=== PATIENT | male | born 1995 | race Caucasian/White ===

== ENCOUNTER 2018-01-26 17:16 | Emergency (ER) | payer BC, SELFPAY ==
[2018-01-26 17:29] VITALS: BP 134/83; PULSE 80; RESP 14; TEMP 37; O2SAT 100
--- NOTE | 2018-01-26 18:04 | DI.REPORT_ITS ---
SYMPTOM/DIAGNOSIS: FALL/TRAUMA RIGHT ELBOW: No fracture or joint effusion is seen. IMPRESSION: Negative right elbow.
--- NOTE | 2018-01-26 18:25 | ED.GENADUL ---
Disposition Clinical Impression: Elbow abrasion, Abrasion, multiple sites Disposition: HOME Condition: Stable Instructions: Abrasion (ED) Additional Instructions: Keep wounds clean and dry and return immediately if you see any signs of infection, purulent drainage, streaking redness or fever chills. Otherwise take your antibiotics until fully gone. Prescriptions: Cephalexin [Keflex] 500 mg PO Q6H #16 cap Referrals: Lloyd Riggs MD [Primary Care Provider] - (as needed for reassessment ) Medical Decision Making - Radiology Data Radiology results: report reviewed, image reviewed - Medical Decision Making Patient reports a fall yesterday evening while intoxicated causing multiple abrasions to the right side of his body. He states a significant abrasion to the right posterior elbow that had quite a bit of contamination in it. He states due to the pain and discomfort of attempting to clean it he is presenting to the emergency department now. Patient states other mild abrasions to the lower legs but otherwise denies any other injury or trauma and just states mild aches and pains but no vertebral tenderness, no significant neck tenderness, no shortness of breath abdominal pain or shortness breath. On physical exam patient has significant tenderness to palpation at posterior elbow and approximately 1-1/2 cm deep abrasion and otherwise multiple superficial abrasions down the forearm and the ulnar aspect of the wrist. Range of motion is appropriate except for some decreased flexion and extension of the elbow otherwise neurovascularly intact with no other joint involvement noted of the shoulder or distal. Plan to perform radiological imaging of the elbow to rule out acute fracture per After review of radiological imaging showing no signs of acute fracture patient consented to local anesthetic and 2% lidocaine was injected locally and 5 mL's were instilled. Wound was then thoroughly scrubbed and cleansed and visualized to base in bloodless field with no evidence of foreign body or contamination continue to be noted after thorough irrigation with fluids and scrubbing with Hibiclens. Other superficial wounds to the upper extremity were also cleansed at this time. Patient tolerated procedure well. Patient unaware of his last tetanus shot but thought it was when he was as a kid so his tetanus was updated and patient placed on Keflex for 4 days due to contaminated abrasion that is into the subcutaneous tissue. Otherwise no other abnormality was noted and also notation was once elbow was anesthetized patient had greater increase of range of motion of the elbow lowering my suspicion of fracture. I feel the patient's main discomfort is due to the multiple abrasions and soft tissue injury. Patient was encouraged to watch for signs of infection return immediately if these occur otherwise to follow-up with his primary care provider as needed. After discussion of diagnosis and plan of care with patient patient agreed and stated no further needs, questions, or concerns at this time. History of Present Illness - General Chief complaint: Laceration Stated complaint: RT ELB INJ Time Seen by Provider: 01/26/18 18:03 Source: patient, RN notes reviewed Mode of arrival: ambulatory Limitations: no limitations - History of Present Illness Initial comments: Patient reports last night he had been drinking and fell down a couple times with 1 of the times he landed on his right elbow. The ambulance was called at that time but he refused transport. Throughout the course of the day he has had worsening pain and discomfort and some numbness and tingling to his hand. Patient states he is unaware of his tetanus and was unable to clean the wound due to significant pain and discomfort. Onset/Timin -: hour(s) Location: right, upper extremity Radiation: distal Severity scale (1-10): 4 Quality: sharp Consistency: constant Improves with: none Worsens with: movement Associated Symptoms: denies other symptoms Treatments Prior to Arrival: none - Related Data Cephalexin [Keflex] 500 mg PO Q6H #16 cap 01/26/18 Allergies Allergy/AdvReac Type Severity Reaction Status Date / Time No Known Allergies Allergy Unverified 01/26/18 17:37 Review of Systems Constitutional: no symptoms reported. denies: chills, fever Eyes: denies: vision change Respiratory: denies: shortness of breath Cardiovascular: denies: chest pain, syncope Musculoskeletal: as per HPI, arthralgia. denies: back pain (Denies neck pain) Skin: as per HPI, other (Multiple skin abrasions to right elbow with one deep scrape) Neurological: paresthesias (2 distal hand). denies: headache, weakness, numbness Past Medical History - Past Medical History Medical history: no medical history Surgical history: other (fx right forearm) - Social History Smoking status: current everyday smoker Alcohol use: occasionally, heavy, recent Drug use: none Living Situation: lives with family General Exam - General Limitations: no limitations General appearance: alert, in no apparent distress - Head Head exam: Present: atraumatic, normocephalic - Neck Neck exam: Present: full ROM. Absent: tenderness - Respiratory Respiratory exam: Absent: respiratory distress - Cardiovascular Cardiovascular Exam: Present: regular rate, normal rhythm - Expanded Upper Extremity Exam Right Elbow exam: Present: tenderness (To palpation of elbow), swelling (Posterior elbow), abrasion (Multiple with 1 deep abrasion noted), tenderness over radial head. Absent: full ROM (Decreased flexion and extension), crepidus, erythema, effusion, pain w/ pronation/supination Forearm Wrist exam: Present: full ROM. Absent: tenderness, tenderness over anatomical snuff box, pain with axial thumb loading Hand Wrist exam: Present: normal inspection Neuro motor exam: Present: wrist extension intact, thumb opposition intact, thumb IP flexion intact, thumb adduction intact, fingers 2-5 abduction intact Neurosensory exam: Present: 2-point discrimination, radial nerve intact, median nerve intact Vascular: Present: radial pulse (2+) - Neurological Exam Neurological exam: Present: alert, oriented X3. Absent: altered - Skin Skin exam: Present: warm, dry Course Vital Signs - 24 hr 01/26/ 17:29 Temperature 37.0 C Pulse 80 Respiratory 14 Rate Blood Pressure 134/83 Pulse Oximetry 100
[2018-01-26] MEDS: Lidocaine 2% Multi-Dose 50 ML VIAL (18:52)
--- NOTE | 2018-01-26 19:11 | DI.VRAD_ITS ---
EXAM: XR Right Elbow Complete, 3 or More Views CLINICAL HISTORY: 22 years old, male; Pain; Elbow; Right; Patient HX: Pain after fall. ; Additional info: Pt. Unable to bend elbow at a 90 degree angle for lateral image TECHNIQUE: Frontal, lateral and oblique views of the right elbow. No lateral view. COMPARISON: No relevant prior studies available. FINDINGS: Bones/joints: Unremarkable. No acute fracture. No dislocation. Soft tissues: Unremarkable. IMPRESSION: No acute fracture. Dictated and Authenticated by: Samy Garcia MD. Ordering:SANTINO QUEEN MD
[2018-01-26] MEDS: Cephalexin 500 MG CAP PO ×2 (19:34→19:37)
[2018-01-26 19:54] VITALS: BP 132/68; PULSE 115; RESP 16; TEMP 38.2; O2SAT 96
== END 2018-01-26 19:46 | disposition home or self-care (01) ==
LOC: ER 08-24 12:54
PROVIDERS: Emergency Provider Emergency Medicine; PCP Family Medicine
DX: S50.311A Abrasion of right elbow, initial encounter (principal); S50.811A Abrasion of right forearm, initial encounter; S60.811A Abrasion of right wrist, initial encounter; F10.10 Alcohol abuse, uncomplicated; W01.0XXA Fall on same level from slipping, tripping and stumbling without subsequent striking against object, initial encounter
CPT/HCPCS: 90471; 99284; 73080

== ENCOUNTER 2018-05-11 07:02 | Emergency (ER) | payer BC, SELFPAY ==
[2018-05-11 07:09] VITALS: BP 137/79; PULSE 77; RESP 16; TEMP 37; O2SAT 97
--- NOTE | 2018-05-11 07:23 | DI.CT_ITS ---
SYMPTOM/DIAGNOSIS: WORSENING RT RIB AND ABD PAIN AFTER FALL CHEST/ABDOMEN AND PELVIC CT: CT scan of the chest, abdomen and pelvis was performed following the uneventful administration of intravenous contrast material. ABDOMEN AND PELVIS: The liver, spleen, gallbladder, bile ducts, pancreas and adrenal glands are all unremarkable. The kidneys show normal and symmetric enhancement. No evidence of a solid renal mass, obstruction or laceration. The urinary bladder is intact. The reproductive organs are unremarkable. The bowel is unremarkable. The abdominal aorta is of normal caliber. No significant abdominal or pelvic adenopathy, ascites or pneumoperitoneum is seen. Note is made of a small fat containing umbilical hernia. No fracture is identified. IMPRESSION: No acute abnormality in the abdomen or pelvis. CHEST: The thoracic aorta is of normal caliber. Heart size is within normal limits. No significant pericardial effusion is seen. No thoracic adenopathy is present. No pleural effusion or pneumothorax is identified. Within the lungs, there are scattered minimal opacities in the lower lobes bilaterally. These areas may represent atelectasis or small contusions. No fracture is identified. IMPRESSION: Minimal opacities seen in the lower lobes bilaterally. These may represent areas of atelectasis or contusion. No acute fracture or pneumothorax.
--- NOTE | 2018-05-11 07:25 | W.ED.GENAD ---
Discharge Plan Disposition Patient Disposition: HOME Condition: Stable Discharge Details Chief Complaint: Chest/Rib Clinical Impression: Contusion of rib on right side, Right pulmonary contusion Primary Care Provider: Lloyd Riggs ED Provider: Ciera Crain Home Meds and New Rx's Prescriptions: New ibuprofen 600 mg tablet 600 mg PO Q6H PRN (Reason: pain) Qty: 20 RF: 0 Discharge Instructions Instructions: Pulmonary Contusion (ED), Rib Contusion (ED) Additional Instructions: Alternate Tylenol and Motrin as needed and directed for pain. Use the incentive spirometer as directed to help take deep breaths to prevent pneumonia. Apply ice to the affected area several times daily for 20 minutes at a time. Follow up with your primary care doctor for reevaluation in 2 days. Return immediately to the emergency department any worsening or new concerning symptoms. Stand Alone Forms: Work Release Discharge Data Discharge Date/Time-TO BE ENTERED AT DEPARTURE: 05/11/18 08:44 Discharge Physician: Ciera Crain Medical Decision Making <Matias Walker MD - Last Filed: 05/13/18 21:12> Patient here with right lateral rib pain status post fall 6 days ago. Vital signs are normal and saturations are normal. He is quite tender over the right lateral ribs but is also very tender in the right upper quadrant. He has some diminished breath sounds in the right base. Doubt that he has significant intra-abdominal injury given normal vital signs after 1 week but because significant tenderness and the diminished breath sounds, I am going to go ahead and CT scan him. IV is established will give fluids because of the contrast dye. Toradol for pain. CBC and CMP ordered. Patient be signed out to oncoming physician for follow-up of studies and reevaluation. Lab Data Lab results reviewed: Yes I reviewed the patient's lab results. Lab results narrative: Labs are unremarkable. Hemoglobin normal. Chemistries and LFTs normal. <Ciera Crain DO - Last Filed: 05/11/18 08:39> Please see Dr. Walker's note for initial presentation, exam and plan. 22-year-old male who presents with persistent right lower rib pain status post slip and fall on direct blunt injury 1 week ago. Pain worse with movement and deep breath. Patient also states he did hit his head but denies any headache, neck pain, LOC, vomiting. Patient has tenderness to palpation and ecchymosis to the right anterior lateral inferior rib cage. Patient given Toradol by Dr. Walker and has relief of pain. Case endorsed to follow-up on CT imaging to rule out rib fracture or intra-abdominal injury. Labs reviewed and unremarkable. 0820 --CT notes minimal opacity in the lower lobes may represent minimal atelectasis or contusion. His injury was 1 week ago, and patient only complains of pain with movement, suspect rib contusion and may be atelectasis due to pain with deep breath but may also be minimal pulmonary contusion. Patient is hemodynamically stable with normal oxygen saturation and respiratory rate. He appears in no acute distress. Patient instructed on the importance of Motrin, ice, and we will send home with incentive spirometer. Repeat vitals within normal limits. Patient has no fever or evidence of pneumonia on imaging. Patient had no anterior chest trauma or pain. Patient instructed to follow-up with his primary care doctor in 2 days for reevaluation and return here with any worsening symptoms. HPI <Matias Walker MD - Last Filed: 05/13/18 21:12> General Mode of arrival: ambulatory. Date/Time Provider Initiated Documentation: 05/11/18 07:15. Limitations to Documentation: no limitations. Information obtained by: patient. HPI Narrative: Patient presents to ED with worsening of right lateral rib pain status post fall just about 1 week ago. He is having increased difficulty breathing because of pain. He has a little bit of a cough productive of brownish sputum. He has had no fever. He does not feel short of breath per se but he cannot take a deep breath. He denies abdominal pain but has no appetite. He has no nausea vomiting. He has had no hematuria or flank pain. He has had no neurologic symptoms. Trying to lie back or any type of movement of the torso makes the pain worse. Breathing makes the pain worse. Ibuprofen has been helping but the pain seems to be getting worse so he came in for evaluation. Related Data Home Medications Medication Instructions Recorded Confirmed ibuprofen 600 mg PO Q6H PRN #20 tab 05/11/18 Previous Rx's Medication Instructions Recorded ibuprofen 600 mg PO Q6H PRN #20 tab 05/11/18 Allergies Allergy/AdvReac Type Severity Reaction Status Date / Time No Known Allergies Allergy Unverified 05/11/18 07:13 General Stated Complaint: Chest/Rib MAGNUS: 4 Review of Systems <Matias Walker MD - Last Filed: 05/13/18 21:12> Constitutional Denies chills, Denies fever(s), Denies headache(s), Reports poor appetite and Denies weakness Eyes Denies change in vision and Denies eye pain ENT Denies headache(s), Denies nasal congestion, Denies neck pain, Denies sinus pain and Denies sore throat Cardiovascular Reports chest pain (right lateral rib pain), Denies diaphoresis, Denies syncope, Denies edema and Denies dyspnea Respiratory Reports cough, Reports pain on inspiration, Reports pain with cough and Denies dyspnea Gastrointestinal Denies abdominal pain, Denies nausea and Denies vomiting Genitourinary Denies hematuria and Denies flank pain Musculoskeletal Denies back pain, Denies muscle weakness, Denies neck pain, Denies numbness and Denies tingling Integumentary/Breasts Denies wounds Neurologic Denies syncope, Denies headache(s), Denies focal weakness, Denies numbness, Denies tingling, Denies paresthesias and Denies weakness Exam <Matias Walker MD - Last Filed: 05/13/18 21:12> Const General: cooperative and uncomfortable Nutritional Appearance: overweight Orientation: alert and oriented x3 [facility] Head: normocephalic and atraumatic Mouth: moist mucous membranes Neck Neck: normal visual inspection, trachea midline and supple Chest Chest: no crepitus and tenderness rib (right lateral ribs) Resp Effort & Inspection: normal respiratory effort Auscultation: diminished lung sounds on the right in the lower lung recinos Cardio Rate: regular rate Rhythm: regular rhythm Heart Sounds: S1 normal and S2 normal GI Palpation: soft, guarding in the RUQ and tender in the RUQ Back/Spine/Pelvis Cervical Spine: cervical ROM normal, No pain with cervical ROM and No cervical spinal tenderness Thoracic/Lumbar Spine: No thoracic spinal tenderness and No lumbar spinal tenderness Skin General skin exam: ecchymosis (slight/faint resolving right lateral ribs) Trauma: no lacerations or abrasions Neuro General: alert, oriented x3, no focal motor deficits and CN's II-XI intact bilaterally Sensory Exam: no sensory deficits noted Extrem General: normal to inspection, full ROM and no clubbing, cyanosis or edema Course <Matias Walker MD - Last Filed: 05/13/18 21:12> Vital Signs Temperature 98.6 F 05/11/18 07:09 Pulse 77 05/11/18 07:09 Respiratory Rate 16 05/11/18 07:09 Blood Pressure 137/79 05/11/18 07:09 Pulse Oximetry 97 05/11/18 07:09 Temperature 98.6 F 05/11/18 07:09 Temperature Source Skin 05/11/18 07:09 Pulse 77 05/11/18 07:09 Respiratory Rate 16 05/11/18 07:09 Respiratory Effort Non-Labored 05/11/18 07:18 Respiratory Depth Normal 05/11/18 07:18 Respiratory Pattern Normal 05/11/18 07:18 Blood Pressure 137/79 05/11/18 07:09 Blood Pressure Position Sitting 05/11/18 07:09 Pulse Oximetry 97 05/11/18 07:09 Oxygen Delivery Method Room Air 05/11/18 07:09 Oxygen Flow Rate 0 05/11/18 07:09 Pain Level 6 05/11/18 07:18 Sign Out <Matias Walker MD - Last Filed: 05/13/18 21:12> Sign Out Data: Sign Out Comment: Signed out pending CT scan review and reevaluation. Last updated by Matias Walker MD at 05/11/18 07:54
[2018-05-11] MEDS: Lactated Ringers 1,000 ML 250 ML IV (07:30)
[2018-05-11] MEDS: Ketorolac 15 MG/ML VIAL IVP (07:35)
--- NOTE | 2018-05-11 07:35 | ED.GENADUL_ITS ---
Discharge Plan Disposition Patient Disposition: HOME Condition: Stable Discharge Details Chief Complaint: Chest/Rib Clinical Impression: Contusion of rib on right side, Right pulmonary contusion Primary Care Provider: Lloyd Riggs ED Provider: Ciera Crain Home Meds and New Rx's Prescriptions: New ibuprofen 600 mg tablet 600 mg PO Q6H PRN (Reason: pain) Qty: 20 RF: 0 Discharge Instructions Instructions: Pulmonary Contusion (ED), Rib Contusion (ED) Additional Instructions: Alternate Tylenol and Motrin as needed and directed for pain. Use the incentive spirometer as directed to help take deep breaths to prevent pneumonia. Apply ice to the affected area several times daily for 20 minutes at a time. Follow up with your primary care doctor for reevaluation in 2 days. Return immediately to the emergency department any worsening or new concerning symptoms. Stand Alone Forms: Work Release Discharge Data Discharge Date/Time-TO BE ENTERED AT DEPARTURE: 05/11/18 08:44 Discharge Physician: Ciera Crain Medical Decision Making <Matias Walker MD - Last Filed: 05/13/18 21:12> Patient here with right lateral rib pain status post fall 6 days ago. Vital signs are normal and saturations are normal. He is quite tender over the right lateral ribs but is also very tender in the right upper quadrant. He has some diminished breath sounds in the right base. Doubt that he has significant intra -abdominal injury given normal vital signs after 1 week but because significant tenderness and the diminished breath sounds, I am going to go ahead and CT scan him. IV is established will give fluids because of the contrast dye. Toradol for pain. CBC and CMP ordered. Patient be signed out to oncoming physician for follow-up of studies and reevaluation. Lab Data Lab results reviewed: Yes I reviewed the patient's lab results. Lab results narrative: Labs are unremarkable. Hemoglobin normal. Chemistries and LFTs normal. <Ciera Crain DO - Last Filed: 05/11/18 08:39> Please see Dr. Walker's note for initial presentation, exam and plan. 22-year-old male who presents with persistent right lower rib pain status post slip and fall on direct blunt injury 1 week ago. Pain worse with movement and deep breath. Patient also states he did hit his head but denies any headache, neck pain, LOC, vomiting. Patient has tenderness to palpation and ecchymosis to the right anterior lateral inferior rib cage. Patient given Toradol by Dr. Walker and has relief of pain. Case endorsed to follow-up on CT imaging to rule out rib fracture or intra-abdominal injury. Labs reviewed and unremarkable. 0820 --CT notes minimal opacity in the lower lobes may represent minimal atelectasis or contusion. His injury was 1 week ago, and patient only complains of pain with movement, suspect rib contusion and may be atelectasis due to pain with deep breath but may also be minimal pulmonary contusion. Patient is hemodynamically stable with normal oxygen saturation and respiratory rate. He appears in no acute distress. Patient instructed on the importance of Motrin, ice, and we will send home with incentive spirometer. Repeat vitals within normal limits. Patient has no fever or evidence of pneumonia on imaging. Patient had no anterior chest trauma or pain. Patient instructed to follow-up with his primary care doctor in 2 days for reevaluation and return here with any worsening symptoms. HPI <Matias Walker MD - Last Filed: 05/13/18 21:12> General Mode of arrival: ambulatory . Date/Time Provider Initiated Documentation: 05/11/18 07:15 . Limitations to Documentation: no limitations . Information obtained by: patient . HPI Narrative: Patient presents to ED with worsening of right lateral rib pain status post fall just about 1 week ago. He is having increased difficulty breathing because of pain. He has a little bit of a cough productive of brownish sputum. He has had no fever. He does not feel short of breath per se but he cannot take a deep breath. He denies abdominal pain but has no appetite. He has no nausea vomiting. He has had no hematuria or flank pain. He has had no neurologic symptoms. Trying to lie back or any type of movement of the torso makes the pain worse. Breathing makes the pain worse. Ibuprofen has been helping but the pain seems to be getting worse so he came in for evaluation. Related Data Home Medications Medication Instructions Recorded Confirmed ibuprofen 600 mg PO Q6H PRN #20 tab 05/11/18 Previous Rx's Medication Instructions Recorded ibuprofen 600 mg PO Q6H PRN #20 tab 05/11/18 Allergies Allergy/AdvReac Type Severity Reaction Status Date / Time No Known Allergies Allergy Unverified 05/11/18 07:13 General Stated Complaint: Chest/Rib MAGNUS: 4 Review of Systems <Matias Walker MD - Last Filed: 05/13/18 21:12> Constitutional Denies chills, Denies fever(s), Denies headache(s), Reports poor appetite and Denies weakness Eyes Denies change in vision and Denies eye pain ENT Denies headache(s), Denies nasal congestion, Denies neck pain, Denies sinus pain and Denies sore throat Cardiovascular Reports chest pain (right lateral rib pain), Denies diaphoresis, Denies syncope , Denies edema and Denies dyspnea Respiratory Reports cough, Reports pain on inspiration, Reports pain with cough and Denies dyspnea Gastrointestinal Denies abdominal pain, Denies nausea and Denies vomiting Genitourinary Denies hematuria and Denies flank pain Musculoskeletal Denies back pain, Denies muscle weakness, Denies neck pain, Denies numbness and Denies tingling Integumentary/Breasts Denies wounds Neurologic Denies syncope, Denies headache(s), Denies focal weakness, Denies numbness, Denies tingling, Denies paresthesias and Denies weakness Exam <Matias Walker MD - Last Filed: 05/13/18 21:12> Const General: cooperative and uncomfortable Nutritional Appearance: overweight Orientation: alert and oriented x3 [facility] Head: normocephalic and atraumatic Mouth: moist mucous membranes Neck Neck: normal visual inspection, trachea midline and supple Chest Chest: no crepitus and tenderness rib (right lateral ribs) Resp Effort & Inspection: normal respiratory effort Auscultation: diminished lung sounds on the right in the lower lung recinos Cardio Rate: regular rate Rhythm: regular rhythm Heart Sounds: S1 normal and S2 normal GI Palpation: soft, guarding in the RUQ and tender in the RUQ Back/Spine/Pelvis Cervical Spine: cervical ROM normal, No pain with cervical ROM and No cervical spinal tenderness Thoracic/Lumbar Spine: No thoracic spinal tenderness and No lumbar spinal tenderness Skin General skin exam: ecchymosis (slight/faint resolving right lateral ribs) Trauma: no lacerations or abrasions Neuro General: alert, oriented x3, no focal motor deficits and CN's II-XI intact bilaterally Sensory Exam: no sensory deficits noted Extrem General: normal to inspection, full ROM and no clubbing, cyanosis or edema Course <Matias Walker MD - Last Filed: 05/13/18 21:12> Vital Signs Temperature 98.6 F 05/11/18 07:09 Pulse 77 05/11/18 07:09 Respiratory Rate 16 05/11/18 07:09 Blood Pressure 137/79 05/11/18 07:09 Pulse Oximetry 97 05/11/18 07:09 Temperature 98.6 F 05/11/18 07:09 Temperature Source Skin 05/11/18 07:09 Pulse 77 05/11/18 07:09 Respiratory Rate 16 05/11/18 07:09 Respiratory Effort Non-Labored 05/11/18 07:18 Respiratory Depth Normal 05/11/18 07:18 Respiratory Pattern Normal 05/11/18 07:18 Blood Pressure 137/79 05/11/18 07:09 Blood Pressure Position Sitting 05/11/18 07:09 Pulse Oximetry 97 05/11/18 07:09 Oxygen Delivery Method Room Air 05/11/18 07:09 Oxygen Flow Rate 0 05/11/18 07:09 Pain Level 6 05/11/18 07:18 Sign Out <Matias Walker MD - Last Filed: 05/13/18 21:12> Sign Out Data: Sign Out Comment: Signed out pending CT scan review and reevaluation. Last updated by Matias Walker MD at 05/11/18 07:54
[2018-05-11 07:36] LABS: Abs Immature Grans 0.04 k/cumm (0.0-0.09); Absolute Basophil Count 0.05 k/cumm (0.0-0.2); Absolute Lymphocyte Count 2.22 k/cumm (1.2-3.4); Absolute Monocyte Count 0.91 k/cumm (0.11-0.7); Absolute Neutrophil Count 5.52 k/cumm (1.2-6.7); Basophils % 0.6; Eosinophils % 3.3; HCT 44.3 % (40.0-50.0); HGB 15.2 g/dL (13.5-17.5); Immature Grans % 0.4; Lymphocytes % 24.6; Mean Corp. HGB Concentration 34.3 g/dL (32.0-36.0); Mean Corpuscular Hemoglobin 31.5 pg (27.0-33.0); Mean Corpuscular Volume 91.9 fL (80-95); Mean Platelet Volume 9.8 fL (8.0-11.0); Monocytes % 10.1; Platelet Count 241 x1000/uL (130-400); RBC 4.82 m/cumm (4.50-6.00); RBC Distribution Width 12.4 % (11.8-14.1); White Blood Cell Count 9.04 k/cumm (4.4-10.8)
[2018-05-11] MEDS: Omnipaque 350 MG/ML 100 ML BTL IV (07:40)
[2018-05-11 07:48] LABS: ALT 53 U/L (12-78); AST 33 U/L (15-37); Albumin 3.9 g/dL (3.4-5.0); Alkaline Phosphatase 111 U/L (46-116); Anion Gap 9.9 mmol/L (3-11); BUN 13 mg/dL (7-18); Bilirubin, Total 0.3 mg/dL (0.2-1.0); CO2 26.1 mmol/L (21.0-32.0); CREATININE 0.74 mg/dL (0.70-1.30); Calcium 8.7 mg/dL (8.5-10.1); Chloride 102 mmol/L (98-107); Glucose 92 mg/dL (70-100); Potassium 4.4 mmol/L (3.5-5.1); Sodium 138 mmol/L (136-145); Total Protein 7.7 g/dL (6.4-8.2)
--- NOTE | 2018-05-11 08:15 | DI.VRAD_ITS ---
EXAM: CT Chest With Contrast EXAM DATE/TIME: 05/11/2018 7:25 AM CLINICAL HISTORY: 22 years old, male; Signs and symptoms; Other: Worsening right rib/abdominal pain after fall TECHNIQUE: Axial computed tomography images of the chest with intravenous contrast. All CT scans at this facility use at least one of these dose optimization techniques: automated exposure control; mA and/or kV adjustment per patient size (includes targeted exams where dose is matched to clinical indication); or iterative reconstruction. Coronal and sagittal reformatted images were created and reviewed. CONTRAST: 100 ml of omnipaque 350 administered intravenously. COMPARISON: CR LEFT HIP COMPLETE \T\ AP PELVIS 07/19/2015 12:51 PM FINDINGS: Lungs: Minimal opacity in the lower lobes may represent minimal atelectasis or contusion. Pleural space: Normal. No pneumothorax. No pleural effusion. Heart: Normal. No cardiomegaly. No pericardial effusion. Aorta: Normal. No aortic aneurysm. Lymph nodes: Unremarkable. No enlarged lymph nodes. Bones/joints: No acute fracture, specifically no rib fracture. Soft tissues: Unremarkable. IMPRESSION: 1. No acute fracture, specifically no rib fracture. 2. Minimal opacity in the lower lobes may represent minimal atelectasis or contusion. EXAM: CT Abdomen and Pelvis With Intravenous Contrast EXAM DATE/TIME: 05/11/2018 7:25 AM CLINICAL HISTORY: 22 years old, male; Signs and symptoms; Other: Worsening right rib/abdominal pain after fall TECHNIQUE: Axial computed tomography images of the abdomen and pelvis with intravenous contrast. All CT scans at this facility use at least one of these dose optimization techniques: automated exposure control; mA and/or kV adjustment per patient size (includes targeted exams where dose is matched to clinical indication); or iterative reconstruction. Coronal and sagittal reformatted images were created and reviewed. CONTRAST: 100 ml of omnipque 350 administered intravenously. COMPARISON: CR LEFT HIP COMPLETE \T\ AP PELVIS 07/19/2015 12:51 PM FINDINGS: Lower thorax: See report for CT chest ABDOMEN: Liver: Normal. No mass. Gallbladder and bile ducts: Normal. No calcified stones. No ductal dilation. Pancreas: Normal. No ductal dilation. Spleen: Normal. No splenomegaly. Adrenals: Normal. No mass. Kidneys and ureters: Normal. No hydronephrosis. Stomach and bowel: Normal. No obstruction. No mucosal thickening. Appendix: No evidence of appendicitis. PELVIS: Bladder: Unremarkable as visualized. Reproductive: Unremarkable as visualized. ABDOMEN and PELVIS: Intraperitoneal space: Normal. No free air. No significant fluid collection. Bones/joints: No acute fracture. No dislocation. Soft tissues: Unremarkable. Vasculature: Normal. No abdominal aortic aneurysm. Lymph nodes: Normal. No enlarged lymph nodes. IMPRESSION: No acute findings. Dictated and Authenticated by: Jeffery Rivers MD. Ordering:EVER AGUAYO MD
[2018-05-11 08:45] VITALS: BP 129/77; PULSE 88; RESP 16; TEMP 37; O2SAT 98
== END 2018-05-11 08:44 | disposition home or self-care (01) ==
LOC: ER 08:56
PROVIDERS: Emergency Medicine; Emergency Provider Physician Assistant; PCP Family Medicine
DX: S20.211A Contusion of right front wall of thorax, initial encounter (principal); S27.321A Contusion of lung, unilateral, initial encounter; W00.0XXA Fall on same level due to ice and snow, initial encounter
CPT/HCPCS: 36415; 74177; 80053; 96361; 96374; 99285; 71260; 85025; 99284; J1885; J3490

== ENCOUNTER 2019-01-23 02:10 | Emergency (ER) | payer BC, SELFPAY ==
[2019-01-23 02:14] VITALS: BP 148/82; PULSE 101; RESP 16; TEMP 36.8; O2SAT 97
--- NOTE | 2019-01-23 02:21 | ED.GENADUL_ITS ---
Discharge Plan Disposition Patient Disposition: HOME Condition: Good Discharge Details Chief Complaint: Orthopedic Clinical Impression: Flexor tenosynovitis of finger Primary Care Provider: Lloyd Riggs ED Provider: Matias Walker [place] Meds and New Rx's Prescriptions: New cephalexin 500 mg capsule 500 mg PO Q6H Qty: 40 RF: 0 Continued omeprazole 20 mg Tablet,Delayed Release (Dr/Ec) 20 mg PO DAILY RF: 0 ibuprofen 600 mg tablet 600 mg PO TID Qty: 15 RF: 0 Discontinued ibuprofen 600 mg tablet 600 mg PO Q6H PRN (Reason: pain) Qty: 20 RF: 0 Discharge Instructions Additional Instructions: Please take antibiotic as directed. Start with 1 g at noon and then take 500 mg every 6 hours after that. Ibuprofen 3 times a day over the weekend. Please take with food. Follow-up with Dr. Hathaway early next week. Return to ED for any fever, worsening pain/swelling, other concerns. Referrals: Brandon Hathaway MD [ [facility] STAFF PHYSICIAN] - Medical Decision Making Patient has signs and symptoms of flexor tenosynovitis. I am not convinced that it has anything to do with what occurred on Saturday as the laceration is on the dorsal aspect of his forearm. Will place IV and get laboratory studies. Will give fluids and Toradol. Will dose with vancomycin and plan discussion with orthopedics. Patient's laboratory studies revealed normal white count and normal sed rate and essentially normal C-reactive protein. Clinically still suspect flexor tenosynovitis. Contacted Dr. Hathaway agreed to see the patient in the morning. On his evaluation of the patient he agrees that this is likely flexor tenosynovitis but he thinks it is early enough that antibiotics alone may be enough. Patient is already reporting that he feels better after Toradol and vancomycin. Recommendation per Dr. Hathaway is Keflex every 6 hours as well as ibuprofen. Patient to follow-up with him after the weekend. Return to ED over the weekend if any worsening symptoms. Lab Data Lab results reviewed: Yes I reviewed the patient's lab results. HPI General Mode of arrival: ambulatory . Date/Time Provider Initiated Documentation: 01/23/19 02:21 . Limitations to Documentation: no limitations . Information obtained by: patient and RN notes reviewed . HPI Narrative: Patient presents to ED with complaint of left hand and wrist pain. Patient is right-hand dominant. On Saturday, 3 days ago now, he had a glass pain fall out of a window striking his left wrist dorsally. Sustained a slight laceration there. Did not seek medical care and did not think much of it. The following day on Saturday he noticed some discomfort and tingling in his left little finger. There was some swelling noted. It has progressed to increased pain with significant swelling of the left little finger. He now has pain involving most of the hand and wrist on the volar side. Little finger and ring finger seem to be most affected. He has felt feverish but there is no thermometer at home to take his temperature. He has been unable to sleep tonight because of pain. He denies any redness. He denies any significant pain to the dorsum of the hand or forearm. Related Data Home Medications Medication Instructions Recorded Confirmed cephalexin 500 mg PO Q6H #40 cap 01/23/19 ibuprofen 600 mg PO TID #15 tab 01/23/19 omeprazole 20 mg PO DAILY 01/23/19 01/23/19 Previous Rx's Medication Instructions Recorded cephalexin 500 mg PO Q6H #40 cap 01/23/19 ibuprofen 600 mg PO TID #15 tab 01/23/19 Allergies Allergy/AdvReac Type Severity Reaction Status Date / Time No Known Allergies Allergy Unverified 01/23/19 02:17 General Stated Complaint: Orthopedic MAGNUS: 4 Review of Systems Review of Systems 03/23 Review of Systems completed and is negative except as stated above in HPI (Systems reviewed: Const, Eyes, ENT, Resp, CV, GI, , MSK, Skin, Neuro) PFS Medical History Heart murmur (Acute) Heartburn (Acute) Surgical History History of surgery on arm (Inactive) Social History Smoking/Tobacco Use Status: Current every day Tobacco Type: cigarettes Drug use: Never Substance use type: does not use Do you feel safe in your relationship?: Yes Additional Social history: pt is not alone Exam Narrative Exam Narrative: Vitals: Afebrile here. Mildly tachycardic and hypertensive. Normal pulse oximetry on room air. Const: WDWN male in NAD. HEENT: NC/AT. Normal facial exam. Eyes: Normal conjunctiva and sclera. Neck: Supple. Trachea midline. Lungs: Normal respiratory effort. Cor: Normal/Strong radial/ulnar pulses bilaterally. Neuro: A+O x 3. CN grossly in tact. Strength and sensation in tact despite complaint of tingling in left hand, sensory is intact. Strength in left hand inhibited by pain not weakness. Ext: Left little finger with symmetric swelling present. Tenderness along the flexor tendon up into the hand wrist area. Ring and little finger partially flexed for comfort. Significant pain with active or passive extension. No erythema or warmth present. No significant swelling of the ring finger. Skin: Became pale and diaphoretic during the exam due to pain in vagal event. No erythema. 1 cm linear laceration on the dorsal left forearm without evidence of infection. Course Vital Signs Temperature 98.2 F 01/23/19 02:14 Pulse 101 H 01/23/19 02:14 Respiratory Rate 16 01/23/19 02:14 Blood Pressure 148/82 H 01/23/19 02:14 Pulse Oximetry 97 01/23/19 02:14 Temperature 98.2 F 01/23/19 02:14 Temperature Source Skin 01/23/19 02:14 Pulse 101 H 01/23/19 02:14 Respiratory Rate 16 01/23/19 02:14 Respiratory Effort Non-Labored 01/23/19 02:18 Blood Pressure 148/82 H 01/23/19 02:14 Pulse Oximetry 97 01/23/19 02:14 Oxygen Delivery Method Room Air 01/23/19 02:14 Oxygen Flow Rate 0 01/23/19 02:14 Pain Level 9 01/23/19 02:18
[2019-01-23] MEDS: Ketorolac 30 MG/ML VIAL IVP (03:08)
[2019-01-23] MEDS: Lactated Ringers 1,000 ML 150 ML IV (03:09)
[2019-01-23 03:16] LABS: Absolute Basophil Count 0.04 k/cumm (0.0-0.2); Absolute Eosinophil Count 0.17 k/cumm (0.0-0.7); Absolute Lymphocyte Count 2.36 k/cumm (1.2-3.4); Absolute Monocyte Count 0.95 k/cumm (0.11-0.7); Absolute Neutrophil Count 6.84 k/cumm (1.2-6.7); Basophils % 0.4; Eosinophils % 1.6; HGB 14.7 g/dL (13.5-17.5); Lymphocytes % 22.6; Mean Corp. HGB Concentration 33.4 g/dL (32.0-36.0); Mean Corpuscular Hemoglobin 31.2 pg (27.0-33.0); Mean Corpuscular Volume 93.4 fL (80-95); Mean Platelet Volume 9.9 fL (8.0-11.0); Monocytes % 9.1; Neutrophils % 65.3; Platelet Count 278 x1000/uL (130-400); RBC 4.71 m/cumm (4.50-6.00); RBC Distribution Width 12.6 % (11.8-14.1); White Blood Cell Count 10.46 k/cumm (4.4-10.8)
[2019-01-23 03:23] LABS: BUN 12 mg/dL (7-18); CREATININE 0.84 mg/dL (0.70-1.30); Calcium 8.6 mg/dL (8.5-10.1); Chloride 102 mmol/L (98-107); Glucose 97 mg/dL (70-100); Potassium 4.1 mmol/L (3.5-5.1); Sodium 138 mmol/L (136-145)
[2019-01-23 03:36] LABS: C-Reactive Protein 0.99 mg/dL (0.0-0.3)
[2019-01-23] MEDS: VANCOMYCIN 1,500 MG in Normal Saline 250 ML 166.6666 MG IVPB (03:44)
[2019-01-23 04:13] LABS: ESR 10 mm/hr (0-15)
[2019-01-23 06:04] VITALS: BP 115/77; PULSE 79; RESP 16; O2SAT 96
[2019-01-23 07:16] VITALS: BP 125/80; PULSE 72; RESP 15; TEMP 36.5; O2SAT 99
--- NOTE | 2019-01-23 07:31 | OCONE_ITS ---
Date of service: 01/23/19 Time of Service: 07:31 History of Present Illness Chief Complaint: Severe pain with movement of RLF Narrative: This is a 23-year-old white male right dominant, who presents the emergency room in the laboratory director hours because of severe pain with movement of his right little finger. He also has swelling of the right little finger. This is gotten the extremely uncomfortable over the last 48 hours. He has no known trauma to the finger he did have a window fall on the dorsum of his right distal forearm about a week ago, but he is not having any pain where the window it hit. He denies any known punctures. Has not noticed any fever or chills at home. His labs for infection are negative, however the patient was exquisitely tender and passive motion of the little finger caused him extreme pain when he was seen by Dr. Aaron estrada. He is now received vancomycin IV and Toradol. He says his hands feeling much better peer Assessment and Plan (1) Flexor tenosynovitis of finger: Current visit: Yes Status: Acute Assessment: I do believe he is showing signs of a flexor Sosa synovitis of the right little finger. I think it is early in its development, so that is why the labs are not markedly elevated. It looks like he is responded actually quite well to Toradol and a dose of vancomycin. I do not think he will need any operative intervention at this time. I would recommend oral anti-inflammatory medications such as ibuprofen 800 mg p.o. every 6 hours along with Keflex 500 mg every 6 hours for 5 days. Can do a loading dose of 1 g of Keflex at 12 noon. Also will have him soak his hand in ice water periodically for swelling and pain peer. Plan: Oral anti-inflammatories, oral antibiotics, soak his hand in ice water 3-4 times a day, and call my office today to follow-up for next week. [facility] Medical History Heart murmur (Acute) Heartburn (Acute) Surgical History History of surgery on arm (Inactive) Social History Smoking/Tobacco Use Status: Current every day Tobacco Type: cigarettes Drug use: Never Substance use type: does not use Do you feel safe in your relationship?: Yes Additional Social history: pt is not alone Exam Narrative Exam Narrative: He has mild swelling of the little finger on the right compared to the left. He is somewhat apprehensive about moving his fingers but he can actively flex and extend his little finger and the other fingers of his right hand he really is not tender with palpation of the little finger and is not tender specifically over the flexor sheath. He has normal circulation sensation the little finger. He has some mild local discomfort we will palpation over the flexor tendons more proximally towards the carpal canal on the dorsum of his right distal forearm he has a superficial abrasion or laceration from where a window hit is not tender is not there is no induration around it. He has full range of motion of his right wrist. I can passively extend his little finger with minimal discomfort. White blood cell count is 10,460 sed rate is 10 mm/h CRP is mildly elevated at 0.99 mg/dL. Results Last Vital Signs Temp 36.5 C 01/23/19 07:16 Pulse 72 01/23/19 07:16 Resp 15 01/23/19 07:16 BP 125/80 01/23/19 07:16 Pulse Ox 99 01/23/19 07:16 Labs : 01/23/19 02:55 01/23/19 02:55 Laboratory Results - last 24 hr 01/23/19 01/23/19 02:55 02:55 WBC 10.46 RBC 4.71 Hgb 14.7 Hct 44.0 MCV 93.4 MCH 31.2 MCHC 33.4 RDW 12.6 Plt Count 278 MPV 9.9 Immature Gran % 1.0 Neutrophils % 65.3 Lymphocytes % 22.6 Monocytes % 9.1 Eosinophils % 1.6 Basophils % 0.4 Absolute Neutrophils 6.84 H Absolute Lymphocytes 2.36 Absolute Monocytes 0.95 H Absolute Eosinophils 0.17 Absolute Basophils 0.04 ESR 10 Sodium 138 Potassium 4.1 Chloride 102 Carbon Dioxide 24.0 Anion Gap 12.0 H BUN 12 Creatinine 0.84 Estimated GFR/1.73 m2 >= 60.00 Glucose 97 Calcium 8.6 C-Reactive Protein 0.99 H
[2019-01-23 07:34] VITALS: BP 125/80; PULSE 72; RESP 15; TEMP 36.5; O2SAT 99
== END 2019-01-23 07:30 | disposition home or self-care (01) ==
PROVIDERS: Emergency Provider Emergency Medicine; PCP Family Medicine
DX: M65.842 Other synovitis and tenosynovitis, left hand (principal); M79.642 Pain in left hand; S61.512A Laceration without foreign body of left wrist, initial encounter; W20.8XXA Other cause of strike by thrown, projected or falling object, initial encounter; Y99.0 Civilian activity done for income or pay; R03.0 Elevated blood-pressure reading, without diagnosis of hypertension
CPT/HCPCS: 36415; 80048; 85652; 96361; 96365; 96366; 96375; 99252; 99284; 85025; 86140; J1885

== ENCOUNTER 2019-02-12 14:45 | Outpatient (CLI) | payer BC, SELFPAY ==
[2019-02-12 16:18] LABS: C-Reactive Protein 1.98 mg/dL (0.0-0.3)
[2019-02-13 09:05] LABS: Cyclic Citrullinated Peptide <2.5 U/mL (<5.0)
[2019-02-13 09:16] LABS: Rheumatoid Factor <8 IU/mL (<12.5)
[2019-02-13 14:51] LABS: ANA Interpretation Negative (NEGAT)
== END 2019-02-12 15:05 ==
PROVIDERS: PCP Family Medicine; Visit Provider Psychiatry & Neurology Neurology
DX: M79.641 Pain in right hand (principal); M79.642 Pain in left hand
CPT/HCPCS: 36415; 86200; 86038; 86140; 86431

== ENCOUNTER 2020-01-08 01:59 | Outpatient (CLI) | payer BC, SELFPAY ==
[2020-01-08 08:14] LABS: Bilirubin Negative (Negative); Blood Negative (Negative); Clarity Clear (Clear); Glucose Negative (Negative); Ketones Negative (Negative); Leukocyte Esterase Negative (Negative); Nitrite Negative (Negative); Urobilinogen 0.2 EU/dL (Up TO 0.2); pH 8.5 (5-8)
[2020-01-08 08:32] LABS: PROTEIN 23.6 mg/dL
[2020-01-08 08:40] LABS: COMMENT (LAB VIEW ONLY) 168.69 mg/dL; Prot/Crea Ur Ratio 0.13
[2020-01-09 17:44] LABS: Angiotensin Converting Enzyme 84 U/L (16 - 85)
== END 2020-01-08 02:19 ==
PROVIDERS: PCP Family Medicine; Visit Provider Internal Medicine Rheumatology
DX: M79.89 Other specified soft tissue disorders (principal); M25.571 Pain in right ankle and joints of right foot; M25.572 Pain in left ankle and joints of left foot; R74.0 Nonspecific elevation of levels of transaminase and lactic acid dehydrogenase [LDH]
CPT/HCPCS: 36415; 82164; 81003; 82565; 84156

== ENCOUNTER 2020-01-08 02:43 | Outpatient (CLI) | payer BC, SELFPAY ==
--- NOTE | 2020-01-08 | DI.RAD_ITS ---
EXAM: XR CHEST 2V PA LATERAL CLINICAL HISTORY: ? SARCOIDOSIS,? HILAR LAD,ELEVATED TRANSAMINASE,R74.0,SWELLING BILAT HANDS TECHNIQUE: 2D digital imaging was performed. COMPARISON: No exams were available for comparison FINDINGS: MEDIASTINUM: Normal. HEART: Normal. PULMONARY VASCULATURE: Normal. LUNGS: Clear. PLEURAL SPACE: No pleural effusion or pneumothorax. BONE:Normal. IMPRESSION: No acute pulmonary findings. DATA REPOSITORY: RADIATION DOSE DELIVERED:
== END 2020-01-08 03:03 ==
PROVIDERS: PCP Family Medicine; Visit Provider Nurse Practitioner Family
DX: R74.0 Nonspecific elevation of levels of transaminase and lactic acid dehydrogenase [LDH] (principal); M79.89 Other specified soft tissue disorders
CPT/HCPCS: 71046

== ENCOUNTER 2020-01-13 11:25 | Emergency (ER) | payer BC, SELFPAY ==
[2020-01-13] VITALS (40 sets, daily range): BP systolic 116–152; BP diastolic 58–93; PULSE 82–105; RESP 13–27; TEMP 36.7; O2SAT 93–97
--- NOTE | 2020-01-13 11:30 | RT.EKG_ITS ---
APPROVED REPORT Exam: Resting ECG Patient Location: E HR:99 bpm ECG Measurements Heart Rate 99 AXIS AK 162 P 63 QRSd 88 QRS -24 QT 338 T 33 QTc 433 Conclusion Sinus rhythm...normal P axis, V-rate 60- [address] depression in V3-6. No acute ST elevation.
--- NOTE | 2020-01-13 11:51 | W.ED.GENAD ---
Discharge Plan Disposition Patient Disposition: HOME Condition: Improving Discharge Details Chief Complaint: Chest Pain Clinical Impression: Left-sided chest wall pain, Chronic chest pain Primary Care Provider: Lloyd Riggs ED Provider: Ciera Crain Home Meds and New Rx's Prescriptions: Continued omeprazole 40 mg capsule,delayed release(DR/EC) 40 mg PO DAILY Qty: 90 RF: 3 Discharge Instructions Instructions: Chronic Pain (ED), Chest Wall Pain (ED) Additional Instructions: Drink plenty of fluids and get plenty of rest. Alternate tylenol and motrin as needed and directed for pain. You can continue to use the [id number] Lidoderm patches to help with pain. Follow-up with your scheduled appointment with Dr. Riggs tomorrow for reevaluation and for consideration for referral for outpatient echocardiogram, quality assurance monitor final, or stress test. Return immediately to the emergency department if you develop any worsening or new concerning symptoms. Discharge Data Discharge Date/Time-TO BE ENTERED AT DEPARTURE: 01/13/20 15:50 Discharge Physician: Ciera Crain Medical Decision Making 1140 -- 24-year-old male with a history of GERD presents for an episode of chest tightness, nausea, dizziness and diaphoresis that occurred while standing at work just prior to arrival. Has had similar episodes occurring every other day for the past several months, but more intense today. Has been seen by his PCP for this and thought to be due to stress. Admits to some worsening of pain with movement of his left arm. EKG notes a rate of 99, sinus with less than [address] depression in V4 through V6 but no acute ST elevation. Differential diagnosis includes ACS, electrolyte abnormality, arrhythmia, PE, dehydration, anxiety. Will place an IV, bolus IV fluids, screening labs, chest x-ray and give Toradol, Ativan and reassess. 1415 -- Labs and imaging reviewed. Patient has had evaluation by his PCP for transaminitis which appear elevated today. He had a recent abdominal ultrasound which noted fatty liver. Patient is a daily drinker so suspect elevated liver enzymes and fatty liver related to this. Patient reassessed and he is still complaining of left-sided chest tightness, but states it has decreased from 6/10 to 4/10. Will give another dose of Ativan, repeat troponin and EKG and reassess. 1520 -- TSH and repeat troponin within normal limits. Repeat EKG now noted normalization of ST depression with no acute ST ischemic changes. Patient reassessed and states his pain is much better and currently 2/10. Patient is requesting to go home. Suspect most likely anxiety vs muscle strain. Patient has a follow-up appointment with his primary care doctor tomorrow. He is advised to keep this appointment for follow-up and consideration for outpatient echocardiogram, quality assurance monitor final or even possibly stress test. Medical Records Medical records reviewed: Yes I reviewed the patient's medical records. Imaging Data Radiologic Study: Radiologist's impression: XR CHEST 2V PA LATERAL CLINICAL HISTORY: L sided chest tightness TECHNIQUE: 2D digital imaging was performed. COMPARISON: CR XR CHEST 2V PA LATERAL from 01/08/2020 FINDINGS: The heart is not enlarged. The lungs are clear and well expanded. No pleural effusion seen. Mediastinal contours appear intact. IMPRESSION: Normal chest Lab Data Lab results reviewed: Yes I reviewed the patient's lab results. Labs: Laboratory Tests Range/Units 01/13/20 01/13/20 01/13/20 11:45 11:45 11:45 WBC (4.4-10.8) 10^3/uL 10.80 RBC (4.36-5.78) 10^6/uL 4.68 Hgb (13.5-17.5) g/dL 14.4 Hct (40.0-50.0) % 42.5 MCV (80-95) fL 90.8 MCH (27.0-33.0) pg 30.8 MCHC (32.0-36.0) % 33.9 RDW (11.8-14.1) % 12.7 Plt Count (130-400) 10^3/uL 285 MPV (8.0-11.0) fL 10.1 Immature Gran % 0.6 Neutrophils % 69.6 Lymphocytes % 20.4 Monocytes % 7.6 Eosinophils % 1.2 Basophils % 0.6 Absolute Neutrophils (1.2-6.7) 10^3/uL 7.52 H Absolute Lymphocytes (1.2-3.4) 10^3/uL 2.20 Absolute Monocytes (0.1-0.8) 10^3/uL 0.82 H Absolute Eosinophils (0.0-0.7) 10^3/uL 0.13 Absolute Basophils (0.0-0.2) 10^3/uL 0.06 D-Dimer (<500) ng/mlFEU 220 Sodium (136-145) mmol/L 138 Potassium (3.5-5.1) mmol/L 3.6 Chloride (98-107) mmol/L 102 Carbon Dioxide (21.0-32.0) mmol/L 24.9 Anion Gap (3-11) mmol/L 11.1 H BUN (7-18) mg/dL 10 Creatinine (0.70-1.30) mg/dL 0.92 Estimated GFR/1.73 m2 (mL/min/1.73m2) >= 60.00 Glucose (74-106) mg/dL 103 Calcium (8.5-10.1) mg/dL 9.4 Magnesium (1.8-2.4) mg/dL 1.7 L Total Bilirubin (0.2-1.0) mg/dL 0.4 AST (15-37) U/L 93 H ALT (16-63) U/L 181 H Alkaline Phosphatase (46-116) U/L 118 H Troponin I (<0.06) ng/mL < 0.05 Total Protein (6.4-8.2) g/dL 8.1 Albumin (3.4-5.0) g/dL 4.4 ECG Data Attestation: I personally reviewed and interpreted this ECG (s) as follows: Interpretation: #1 -- Rate of 99, sinus, less than [address] depression in V4 through V6. No acute ST elevation. IL 162. QRS 88. QTc 433. #2 -- Rate of 94, sinus, no acute ST elevation or depression. T wave inversion in lead III. IL 178. QRS 87. QTc 441. HPI General Mode of arrival: ambulatory. Date/Time Provider Initiated Documentation: 01/13/20 11:45. Limitations to Documentation: no limitations. Information obtained by: patient. HPI Narrative: Patient is a 24-year-old male with a history of GERD presents with an episode of chest tightness, dizziness, nausea and sweating that occurred while standing at work 1 hour prior to arrival. 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 He states he sat down and the symptoms improved slightly. He states his chest pain is currently 6/10. He admits to ongoing similar episodes over the past several months which occur approximately every other day but states today's episode was more intense than usual. He states he has been eating and drinking normally. He was seen by his primary care doctor for a similar episode in August and was thought that this was likely due to stressors at home as he had a new baby on the way at that time. Patient denies any recent travel, recent surgery, cough, fever, abdominal pain, vomiting, diarrhea, leg pain or swelling. Related Data Home Medications Medication Instructions Recorded Confirmed omeprazole 40 mg capsule,delayed 40 mg PO DAILY #90 cap 02/12/19 01/13/20 release Previous Rx's Medication Instructions Recorded omeprazole 40 mg capsule,delayed 40 mg PO DAILY #90 cap 02/12/19 release Allergies Allergy/AdvReac Type Severity Reaction Status Date / Time No Known Allergies Allergy Verified 01/13/20 11:36 General Stated Complaint: Chest Pain MAGNUS: 2 Review of Systems All systems reviewed & are unremarkable except as noted in HPI and below Constitutional Constitutional: Reports as per HPI, Denies chills and Denies fever(s) Eyes Eyes: Denies blurry vision ENT Ears, Nose, Mouth, and Throat: Reports dizziness, Denies sore throat and Denies throat swelling Cardiovascular Cardiovascular: Reports chest pain and Denies dyspnea Respiratory Respiratory: Denies cough and Denies dyspnea Gastrointestinal Gastrointestinal: Denies abdominal pain, Denies diarrhea, Reports nausea and Denies vomiting Genitourinary Genitourinary: Denies hematuria and Denies dysuria Musculoskeletal Musculoskeletal: Denies back pain and Denies numbness Integumentary/Breasts Skin/Breast: Denies lesions and Denies rash Neurologic Neurologic: Reports dizziness, Denies localized weakness and Denies numbness Allergic/Immunologic Allergic/Immunologic: Denies throat swelling [facility] Medical History (Updated 01/13/20 @ 15:42 by Ciera Crain DO) Heart murmur (Acute) Heartburn (Acute) Pharyngitis (Inactive 04/01/12) Viral disease (Inactive 07/04/12) Surgical History History of surgery on arm (Inactive) Social History Smoking/Tobacco Use Status: Current every day Tobacco Type: cigarettes Years smoked: 5 Alcohol Intake: current Alcohol Intake frequency: 0-2 drinks per day Alcohol type: beer Drug use: Never Substance use type: does not use Household members: significant other Do you feel safe at home: Yes Do you feel safe in your relationship?: Yes Exam Const General: cooperative, no acute distress and anxious HENMT Head: normal to inspection Face and sinus: normal facial exam Eyes General: appearance normal, both eyes and all related structures Pupils: PERRL EOM: EOM intact bilaterally Neck Neck: normal visual inspection and No submandibular swelling Lymphatic: no lymphadenopathy noted Chest Chest: normal inspection of the chest and no tenderness Chest/axillae images: 1. Localized area of tenderness to palpation. No rash, cellulitis or trauma. No crepitus or step-off. Resp Effort & Inspection: normal respiratory effort and able to speak in complete sentences Auscultation: clear to auscultation bilaterally Cardio Rate: regular rate Rhythm: regular rhythm GI Inspection: normal to inspection Palpation: soft, not firm, not rigid and nontender Auscultation: normal bowel sounds Back/Spine/Pelvis Thoracic/Lumbar Spine: thoracic and lumbar spine normal to inspection Skin General skin exam: no rashes or lesions noted Neuro General: patient alert, patient awake and patient oriented x3 Cognition: normal cognition Speech: speech normal Motor: muscle tone normal throughout Sensory Exam: no sensory deficits noted Extrem General: normal to inspection, full ROM, capillary refill normal, no calf tenderness bilaterally and no edema Psych Appearance: grossly normal Mental Status: mental status grossly normal Speech and Movement: speech and movement normal Affect: normal affect Course Vital Signs Vital signs: Vital Signs Temperature 98.1 F 01/13/20 11:34 Pulse 102 H 01/13/20 11:34 Respiratory Rate 18 01/13/20 11:34 Blood Pressure 152/93 H 01/13/20 11:34 Pulse Oximetry 96 01/13/20 11:34 Temperature 98.1 F 01/13/20 11:34 Pulse 102 H 01/13/20 11:34 Respiratory Rate 18 01/13/20 11:34 Respiratory Effort Non-Labored 01/13/20 11:37 Blood Pressure 152/93 H 01/13/20 11:34 Blood Pressure Position Sitting 01/13/20 11:34 Pulse Oximetry 96 01/13/20 11:34 Oxygen Delivery Method Room Air 01/13/20 11:34 Oxygen Flow Rate 0 01/13/20 11:34 Pain Level 9 01/13/20 11:34
[2020-01-13 11:57] LABS: Abs Immature Grans 0.07 10^3/uL (0.0-0.06); Absolute Basophil Count 0.06 10^3/uL (0.0-0.2); Absolute Eosinophil Count 0.13 10^3/uL (0.0-0.7); Absolute Monocyte Count 0.82 10^3/uL (0.1-0.8); Absolute Neutrophil Count 7.52 10^3/uL (1.2-6.7); Basophils % 0.6; Eosinophils % 1.2; HCT 42.5 % (40.0-50.0); HGB 14.4 g/dL (13.5-17.5); Immature Grans % 0.6; Lymphocytes % 20.4; MCH 30.8 pg (27.0-33.0); MCHC 33.9 % (32.0-36.0); MCV 90.8 fL (80-95); MPV 10.1 fL (8.0-11.0); Monocytes % 7.6; Neutrophils % 69.6; Nucleated RBC 0 %; Platelet Count 285 10^3/uL (130-400); RBC 4.68 10^6/uL (4.36-5.78); RDW 12.7 % (11.8-14.1); RDW-SD 41.9 fL
[2020-01-13 12:24] LABS: ALT 181 U/L (16-63); AST 93 U/L (15-37); Albumin 4.4 g/dL (3.4-5.0); Alkaline Phosphatase 118 U/L (46-116); Anion Gap 11.1 mmol/L (3-11); BUN 10 mg/dL (7-18); Bilirubin, Total 0.4 mg/dL (0.2-1.0); CO2 24.9 mmol/L (21.0-32.0); CREATININE 0.92 mg/dL (0.70-1.30); Calcium 9.4 mg/dL (8.5-10.1); Chloride 102 mmol/L (98-107); Glucose 103 mg/dL (74-106); Magnesium 1.7 mg/dL (1.8-2.4); Potassium 3.6 mmol/L (3.5-5.1); Sodium 138 mmol/L (136-145); Total Protein 8.1 g/dL (6.4-8.2)
[2020-01-13 12:28] LABS: Troponin I < 0.05 ng/mL (<0.06)
--- NOTE | 2020-01-13 12:30 | DI.RAD_ITS ---
EXAM: XR CHEST 2V PA LATERAL CLINICAL HISTORY: L sided chest tightness TECHNIQUE: 2D digital imaging was performed. COMPARISON: CR XR CHEST 2V PA LATERAL from 01/08/2020 FINDINGS: The heart is not enlarged. The lungs are clear and well expanded. No pleural effusion seen. Mediastin al contours appear intact. IMPRESSION: Normal chest
[2020-01-13] MEDS: Normal Saline 1,000 ML 1000 ML IV (12:45)
[2020-01-13] MEDS: LORazepam 0.5 MG TAB PO (12:45)
[2020-01-13] MEDS: Lidocaine 5% Patch 1 PATCH TP (12:45)
[2020-01-13] MEDS: Ketorolac 30 MG/ML VIAL IVP (12:46)
[2020-01-13 13:44] LABS: D-Dimer 220 ng/mlFEU (<500)
--- NOTE | 2020-01-13 14:15 | RT.EKG_ITS ---
APPROVED REPORT Exam: Resting ECG Patient Location: E HR:94 bpm ECG Measurements Heart Rate 94 AXIS VT 178 P 33 QRSd 87 QRS -33 QT 353 T 2 QTc 441 Conclusion Sinus rhythm...normal P axis, V-rate 60- 99 Left axis deviation...QRS axis (-30,-90). T wave inversion in lead III. No acute ST elevation or depression.
[2020-01-13 15:19] LABS: TSH (W/Ref FT4) 0.87 uIU/mL (0.36-3.74); Troponin I < 0.05 ng/mL (<0.06)
== END 2020-01-13 15:50 | disposition home or self-care (01) ==
PROVIDERS: Emergency Provider Physician Assistant; PCP Family Medicine
DX: R07.81 Pleurodynia (principal); G89.29 Other chronic pain; R42 Dizziness and giddiness; K21.9 Gastro-esophageal reflux disease without esophagitis; R11.0 Nausea; F17.210 Nicotine dependence, cigarettes, uncomplicated
CPT/HCPCS: 80053; 93005; 96361; 96374; 99285; 71046; 83735; 84443; 84484; 85025; 85379; 93010; J1885

== ENCOUNTER 2020-01-28 00:05 | Outpatient (CLI) | payer BC, SELFPAY ==
--- NOTE | 2020-01-28 09:00 | ETT_ITS ---
APPROVED REPORT Exam: Exercise Treadmill Patient Location: Out-Patient Room/Bed: Stress Nurse: Payal Lee RN BMI: 36.80 Baseline Rhythm: Sinus Rhythm Indications: Chest pain. Medical History Medical History: GERD Cardiac Medications: None Allergies: No known drug allergies Cardiac Risk Factors: FHX of CAD, Smoking Exercise History: Physically active Lung Sounds: Clear to auscultation Heart Sounds: Regular Stress Test Details Test: Exercise stress testing was performed using a [place] protocol. Rest Stress HR Resting HR Supine: 81 bpm Max Heart Rate (APMHR): 195 bpm Resting HR Standin bpm Target HR (85% APMHR): 165 bpm Max HR Achieved: 174 bpm % of APMHR: 89 Recovery HR: 102 bpm HR response to stress: Normal HR response to stress BP Resting BP Supine: 124/66 mmHg Resting BP Standin/68 mmHg Max BP: 180/60 mmHg Recovery BP: 132/68 mmHg BP response to stress: Normal blood pressure response to stress. ECG Resting ECG: Sinus Rhythm Ectopy: None Stress ECG: Sinus Tachycardia ST Change: No significant ST segment changes Arrhythmia: None Recovery ECG: Sinus Rhythm Recovery ST Change: No significant ST segment changes Recovery Arrhythmia: None Clinical Reason for Termination: Dyspnea Stress Symptoms: Dyspnea Exercise duration: 10 min00 sec Highest Stage Reached: Stage 4: 4.2 mph at 16% grade. Exercise capacity: 11.79 METs Functional Capacity: Average Capacity Stress ECG Conclusion 1. The patient exercised for 10 minutes (12 METS). The patient no symptoms suggestive of ischemia. 2. The patient achieved 89% of maximum predicted heart rate. 3. There is no evidence of ischemia on ECG portion of exam. 4. The Hammond Score ( 10) estimates an annual cardiovascular mortality of 0% and a five year survival o f 96%. Using the Hammond Score there is a low probability of any angiographic coronary disease. Stress Test Summary STAGE Time (mins) Speed (mph) Grade (%) HR BP SYMPTOMS METS Supine 81 124/66 Standing 91 126/68 1 3 1.7 10 118 130/70 4.6 2 6 2.5 12 132 152/64 7 1 min recovery 140 180/60 3 min recovery 106 164/64 6 min recovery 102 132/68
== END 2020-01-28 00:25 ==
PROVIDERS: PCP Nurse Practitioner; Visit Provider Family Medicine
DX: G89.29 Other chronic pain (principal); R07.9 Chest pain, unspecified; Z82.49 Family history of ischemic heart disease and other diseases of the circulatory system; F17.210 Nicotine dependence, cigarettes, uncomplicated
CPT/HCPCS: 93017

== ENCOUNTER 2020-02-26 05:35 | Emergency (ER) | payer BC, SELFPAY ==
[2020-02-26 05:41] VITALS: BP 152/81; PULSE 103; RESP 16; TEMP 36.5; O2SAT 100
--- NOTE | 2020-02-26 05:48 | ED.GENADUL_ITS ---
Discharge Plan Disposition Patient Disposition: HOME Condition: Good Discharge Details Clinical Impression: Contusion of left great toe without damage to nail, initial encounter Primary Care Provider: Laura Gandara ED Provider: Matias Walker Meds and New Rx's Prescriptions: Continued omeprazole 40 mg Capsule,Delayed Release(Dr/Ec) 40 mg PO DAILY RF: 0 Discharge Instructions Additional Instructions: Wear postop shoe for comfort until pain better. Ice, elevate, ibuprofen over the weekend. Follow-up with primary care in 1 to 2 weeks if not better. Return to ED if worse. Referrals: Laura Gandara, [employer] [Primary Care Provider] - Medical Decision Making Patient given shot of Toradol for pain and x-ray of the left foot ordered. X-ray per my review as well as radiology read negative for fracture. Patient placed in postop shoe for comfort. Ice, elevate, ibuprofen over the weekend. Follow-up with primary care 1 to 2 months if not better. Return to ED if problems. HPI General Mode of arrival: ambulatory . Date/Time Provider Initiated Documentation: 02/26/20 05:48 . Limitations to Documentation: no limitations . Information obtained by: patient and RN notes reviewed . HPI Narrative: Patient presents to ED with complaint of left big toe pain. Patient kicked a w heelbarrow while mowing his lawn last night. Took Tylenol earlier this morning. Able to ambulate but with significant pain. Has discoloration and pain of the left big toe. Denies other injury. Related Data Home Medications Medication Instructions Recorded Confirmed omeprazole 40 mg PO DAILY 02/26/20 02/26/20 Allergies Allergy/AdvReac Type Severity Reaction Status Date / Time No Known Allergies Allergy Verified 02/26/20 05:44 General Stated Complaint: Orthopedic MAGNUS: 4 Review of Systems Constitutional Constitutional: Denies fever(s) Cardiovascular Cardiovascular: Denies dyspnea Respiratory Respiratory: Denies cough and Denies dyspnea Musculoskeletal Musculoskeletal: Denies deformity [facility] Medical History GERD (gastroesophageal reflux disease) Heart murmur Surgical History History of surgery on arm Social History Smoking/Tobacco Use Status: Current every day Tobacco Type: cigarettes Years smoked: 5 Alcohol Intake: current Alcohol Intake frequency: 0-2 drinks per day Alcohol type: beer Drug use: Never Substance use type: does not use Household members: significant other Do you feel safe at home: Yes Do you feel safe in your relationship?: Yes Exam Const General: cooperative, comfortable and no acute distress Orientation: alert and oriented x3 Resp Effort & Inspection: normal respiratory effort Neuro General: patient alert, patient oriented x3 and no focal motor deficits Cognition: normal cognition Speech: speech normal Extrem Left lower extremity: foot Other: Left foot with purplish ecchymosis involving left big toe. Tenderness and decreased range of motion involving the big toe. Slight tenderness at the base of the third toe. Otherwise no foot tenderness. Other toes normal. Ankle normal. Course Vital Signs Vital signs: Vital Signs Temperature 97.7 F 02/26/20 05:41 Pulse 103 H 02/26/20 05:41 Respiratory Rate 16 02/26/20 05:41 Blood Pressure 152/81 H 02/26/20 05:41 Pulse Oximetry 100 02/26/20 05:41 Temperature 97.7 F 02/26/20 05:41 Pulse 103 H 02/26/20 05:41 Respiratory Rate 16 02/26/20 05:41 Blood Pressure 152/81 H 02/26/20 05:41 Pulse Oximetry 100 02/26/20 05:41 Pain Level 9 02/26/20 05:41
[2020-02-26] MEDS: Ketorolac 30 MG/ML VIAL IM (06:02)
--- NOTE | 2020-02-26 06:23 | DI.RAD_ITS ---
EXAM: XR FOOT LT COMPLETE CLINICAL HISTORY: trauma TECHNIQUE: COMPARISON: No exams were available for comparison FINDINGS: Three views were obtained. No fractures identified. Alignment appears within normal limits. IMPRESSION: No fracture seen. RADIATION DOSE DELIVERED: Total DLP
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
== END 2020-02-26 07:20 | disposition home or self-care (01) ==
PROVIDERS: Emergency Provider Emergency Medicine; PCP Nurse Practitioner
DX: S90.112A Contusion of left great toe without damage to nail, initial encounter (principal); W22.09XA Striking against other stationary object, initial encounter
CPT/HCPCS: 96372; 99284; 73630; 99283; J1885

== ENCOUNTER 2020-07-15 01:45 | Outpatient (CLI) | payer BC, SELFPAY ==
[2020-07-16 11:33] LABS: COVID-19 RT-PCR UVMMC Result Negative (Negative)
== END 2020-07-15 01:46 | disposition home or self-care (01) ==
LOC: LBO 01:45
PROVIDERS: PCP Nurse Practitioner; Visit Provider Nurse Practitioner
DX: Z20.822 Contact with and (suspected) exposure to COVID-19 (principal)
CPT/HCPCS: U0003

== ENCOUNTER 2020-10-01 18:37 | Inpatient (IN) | payer OTHER, SELFPAY ==
[2020-10-01 18:43] VITALS: BP 166/92; PULSE 95; TEMP 36.6; O2SAT 97
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
[2020-10-01 19:09] LABS: Bilirubin Negative (Negative); Blood Negative (Negative); Clarity Cloudy (Clear); Glucose Negative (Negative); Ketones Trace mg/dL (Negative); Leukocyte Esterase Negative (Negative); Nitrite Negative (Negative); Urobilinogen 0.2 EU/dL (Up TO 0.2); pH 8.5 (5-8)
[2020-10-01 19:19] LABS: Abs Immature Grans 0.07 10^3/uL (0.0-0.06); Absolute Basophil Count 0.09 10^3/uL (0.0-0.2); Absolute Eosinophil Count 0.16 10^3/uL (0.0-0.7); Absolute Lymphocyte Count 1.99 10^3/uL (1.2-3.4); Absolute Neutrophil Count 10.94 10^3/uL (1.2-6.7); Basophils % 0.6; Eosinophils % 1.1; HCT 44.5 % (40.0-50.0); HGB 15.5 g/dL (13.5-17.5); Immature Grans % 0.5; MCH 33.8 pg (27.0-33.0); MCHC 34.8 % (32.0-36.0); MCV 97.2 fL (80-95); MPV 10.1 fL (8.0-11.0); Neutrophils % 76.8; Nucleated RBC 0 %; Platelet Count 271 10^3/uL (130-400); RBC 4.58 10^6/uL (4.36-5.78); RDW 12.1 % (11.8-14.1); RDW-SD 43.3 fL; WBC 14.24 10^3/uL (4.4-10.8)
[2020-10-01 19:19] LABS: Bacteria Negative HPF (Negative); C & S Indicated? No; Casts Negative LPF (Negative); Crystals Many Amorphous HPF (Negative); Epithelial Cells Negative HPF (Negative); Mucus Negative (Negative); Other Cells Negative (Negative); WBC 0-2 HPF (0-5)
[2020-10-01 19:33] LABS: ALT 179 U/L (16-63); AST 104 U/L (15-37); Albumin 4.2 g/dL (3.4-5.0); Alkaline Phosphatase 143 U/L (46-116); Anion Gap 10.3 mmol/L (3-11); BUN 6 mg/dL (7-18); Bilirubin, Total 0.4 mg/dL (0.2-1.0); CO2 27.7 mmol/L (21.0-32.0); CREATININE 0.9 mg/dL (0.70-1.30); Calcium 9.1 mg/dL (8.5-10.1); Chloride 102 mmol/L (98-107); Glucose 118 mg/dL (74-106); Potassium 3.3 mmol/L (3.5-5.1); Sodium 140 mmol/L (136-145)
[2020-10-01] MEDS: Normal Saline - Diluent 50 ML VIAL IV (19:39)
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
[2020-10-01 21:00] LABS: Lipase 1463 U/L (73-393)
[2020-10-01 21:40] VITALS: BP 154/99; PULSE 90; RESP 18; TEMP 37; O2SAT 97
[2020-10-01] MEDS: MORPHine 10 MG/ML VIAL 6 MG IVP (21:40)
[2020-10-01] MEDS: Normal Saline 1,000 ML 1000 ML IV (21:40)
[2020-10-01 21:56] VITALS: BP 154/99; PULSE 90; RESP 18; TEMP 37; O2SAT 97
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
[2020-10-01 22:22] VITALS: BP 143/94; PULSE 91; RESP 18; TEMP 36.8; O2SAT 98
[2020-10-01 22:28] VITALS: BP 143/94; PULSE 91; RESP 18; TEMP 36.8; O2SAT 98
[2020-10-01 22:28] LABS: COVID-19 PCR Negative (Negative)
[2020-10-01] MEDS: Pantoprazole 40 MG VIAL IVP (23:07)
[2020-10-01] MEDS: Lactated Ringers 1,000 ML 125 ML IV (23:08)
[2020-10-01] MEDS: Normal Saline Flush 10 ML SYR IVP (23:08)
[2020-10-01] MEDS: DOXYCYCLINE 100 MG in Normal Saline 100 ML IVPB (23:24)
[2020-10-02 03:50] VITALS: BP 136/83; PULSE 82; RESP 16; TEMP 37.6; O2SAT 95
[2020-10-02] MEDS: MORPHine 4 MG/ML SYR IVP (04:20)
[2020-10-02] MEDS: Normal Saline Flush 10 ML SYR IVP ×3 (04:21→12:26)
[2020-10-02 07:26] LABS: Abs Immature Grans 0.07 10^3/uL (0.0-0.06); Absolute Eosinophil Count 0.19 10^3/uL (0.0-0.7); Basophils % 0.4; Eosinophils % 1.4; HCT 41.8 % (40.0-50.0); HGB 14.3 g/dL (13.5-17.5); Immature Grans % 0.5; MCH 33.5 pg (27.0-33.0); MCHC 34.2 % (32.0-36.0); MCV 97.9 fL (80-95); MPV 10.2 fL (8.0-11.0); Monocytes % 8.6; Neutrophils % 73.1; Nucleated RBC 0 %; Platelet Count 237 10^3/uL (130-400); RBC 4.27 10^6/uL (4.36-5.78); RDW 12.1 % (11.8-14.1); RDW-SD 43.9 fL; WBC 13.77 10^3/uL (4.4-10.8)
[2020-10-02 07:34] LABS: Lipase 528 U/L (73-393); Magnesium 1.7 mg/dL (1.8-2.4)
[2020-10-02 07:37] LABS: Absolute Basophil Count 0.06 10^3/uL (0.0-0.2); Absolute Monocyte Count 1.18 10^3/uL (0.1-0.8); Absolute Neutrophil Count 10.07 10^3/uL (1.2-6.7)
[2020-10-02 07:41] LABS: ALT 137 U/L (16-63); AST 73 U/L (15-37); Albumin 3.3 g/dL (3.4-5.0); Alkaline Phosphatase 123 U/L (46-116); Anion Gap 9.4 mmol/L (3-11); BUN 4 mg/dL (7-18); Bilirubin, Total 0.7 mg/dL (0.2-1.0); CO2 25.6 mmol/L (21.0-32.0); CREATININE 0.8 mg/dL (0.70-1.30); Calcium 8.3 mg/dL (8.5-10.1); Chloride 105 mmol/L (98-107); Glucose 97 mg/dL (74-106); Sodium 140 mmol/L (136-145); Total Protein 6.8 g/dL (6.4-8.2)
[2020-10-02 07:45] LABS: Calculated LDL 107 mg/dL (<100); Cholesterol 175 mg/dL (<200); HDL Cholesterol 47 mg/dL (40-60); Triglyceride 106 mg/dL (<150)
[2020-10-02 07:57] VITALS: BP 128/82; PULSE 83; RESP 18; TEMP 36.9; O2SAT 95
[2020-10-02] MEDS: Lactated Ringers 1,000 ML 175 ML IV (08:26)
[2020-10-02] MEDS: Pantoprazole 40 MG VIAL IVP (08:26)
[2020-10-02 08:47] LABS: C-Reactive Protein 2.61 mg/dL (0.0-0.3)
[2020-10-02] MEDS: levoFLOXacin 750 MG/150 ML BAG 100 MG IVPB (09:52)
--- NOTE | 2020-10-02 10:03 | PGE_ITS ---
Date of Service Date of service: 10/02/20 Time of Service: 10:03 Assessment and Plan Assessment and plan (1) Acute alcoholic pancreatitis: Status: Acute Assessment and plan: NPO. Increase rate of IVF. Pain management: continue prn morphine; add toradol/low dose tylenol. IS. Watch for an ileus. (2) Aspiration pneumonia: Status: Acute Assessment and plan: Change abx to levofloxacin for better coverage. Encourage IS. (3) Alcohol intake above recommended sensible limits: Status: Acute Assessment and plan: Start monitoring on CIWA. Add banana bag. Stat al ine. Watch/replete lytes. Check vitamin levels (4) Hypomagnesemia: Status: Acute Assessment and plan: Replete, recheck in am (5) Hypokalemia: Status: Resolved Assessment and plan: Recheck in am. (6) Tobacco abuse: Status: Acute Assessment and plan: Provide nicotine replacement (7) DVT prophylaxis: Status: Acute Assessment and plan: Not required in an ambulatory 25 year old male (8) Discharge planning issues: Status: Acute Assessment and plan: Full code Continues to require hospitalization - admit to inpatient status. Subjective Subjective Interval history since last seen: Feels better this morning, pain periumbilical/epigastric with radiation to the back 3/10 at rest, worse with movement. No nausea. Denies dizziness, chest pain unless he takes a deep breath, denies SOB. Has been coughing - cough productive of brownish sputum - normal for him. + BM this am. Last morphine dose at 4 am. He denies h/o EtOH w/d though he states that when he stops drinking he can't sleep. No h/o DTs/seizures. When he does not drink, he states he smokes. We discussed how he should decrease his alcohol intake - he is taking this seriously. Exam Narrative Exam Narrative: General: Pleasant obese male who does look to be in pain, A&Ox3, cooperative, no signs of EtOH w/d. HEENT: EOMI, MMM Heart: RRR, no m/r/g Lungs: Diminished breath sounds at B bases Abdomen: soft, tender in epigastrium/periumbilically, nondistended Extremities: no edema BLE's, 2+ pedal pulses B Objective Last Vital Signs Temp 36.9 C 10/02/20 07:57 Pulse 83 04/25/21 07:57 Resp 18 10/02/20 07:57 BP 128/82 10/02/20 07:57 Pulse Ox 95 10/02/20 07:57 Laboratory Results - last 24 hr 10/01/20 10/01/20 10/01/20 18:50 18:50 18:50 WBC 14.24 H RBC 4.58 Hgb 15.5 Hct 44.5 MCV 97.2 H MCH 33.8 H MCHC 34.8 RDW 12.1 Plt Count 271 MPV 10.1 Immature Gran % 0.5 Neutrophils % 76.8 Lymphocytes % 14.0 Monocytes % 7.0 Eosinophils % 1.1 Basophils % 0.6 Nucleated RBC % 0 Absolute Neutrophils 10.94 H Absolute Lymphocytes 1.99 Absolute Monocytes 1.00 H Absolute Eosinophils 0.16 Absolute Basophils 0.09 Sodium 140 Potassium 3.3 L Chloride 102 Carbon Dioxide 27.7 Anion Gap 10.3 BUN 6 L Creatinine 0.9 Estimated GFR/1.73 m2 >= 60.00 Glucose 118 H Calcium 9.1 Magnesium Total Bilirubin 0.4 AST 104 H ALT 179 H Alkaline Phosphatase 143 H C-Reactive Protein Total Protein 8.0 Albumin 4.2 Triglycerides Total Cholesterol LDL Cholesterol, Calc HDL Cholesterol Lipase Urine Color Urine Clarity Urine pH Ur Specific [place] Urine Protein Urine Ketones Urine Blood Urine Nitrite Urine Bilirubin Urine Urobilinogen Ur Leukocyte Esterase Urine RBC Urine WBC Ur Epithelial Cells Urine Crystals Urine Bacteria Urine Casts Urine Mucus Urine Other Ur Culture Indicated? Urine Glucose COVID-19 Source SARS-CoV-2 (PCR) Patient ABO/Rh O Positive Antibody Screen Negative 10/01/20 10/01/20 10/01/20 18:50 18:52 21:35 WBC RBC Hgb Hct MCV MCH MCHC RDW Plt Count MPV Immature Gran % Neutrophils % Lymphocytes % Monocytes % Eosinophils % Basophils % Nucleated RBC % Absolute Neutrophils Absolute Lymphocytes Absolute Monocytes Absolute Eosinophils Absolute Basophils Sodium Potassium Chloride Carbon Dioxide Anion Gap BUN Creatinine Estimated GFR/1.73 m2 Glucose Calcium Magnesium Total Bilirubin AST ALT Alkaline Phosphatase C-Reactive Protein Total Protein Albumin Triglycerides Total Cholesterol LDL Cholesterol, Calc HDL Cholesterol Lipase 1463 H Urine Color Yellow Urine Clarity Cloudy Urine pH 8.5 H Ur Specific [place] 1.020 Urine Protein 30 H Urine Ketones Trace H Urine Blood Negative Urine Nitrite Negative Urine Bilirubin Negative Urine Urobilinogen 0.2 Ur Leukocyte Esterase Negative Urine RBC 3-5 H Urine WBC 0-2 Ur Epithelial Cells Negative Urine Crystals Many amorphous Urine Bacteria Negative Urine Casts Negative Urine Mucus Negative Urine Other Negative Ur Culture Indicated? No Urine Glucose Negative COVID-19 Source Nasopharyx SARS-CoV-2 (PCR) Negative Patient ABO/Rh Antibody Screen 10/02/20 10/02/20 10/02/20 06:28 06:28 06:28 WBC 13.77 H RBC 4.27 L Hgb 14.3 Hct 41.8 MCV 97.9 H MCH 33.5 H MCHC 34.2 RDW 12.1 Plt Count 237 MPV 10.2 Immature Gran % 0.5 Neutrophils % 73.1 Lymphocytes % 16.0 Monocytes % 8.6 Eosinophils % 1.4 Basophils % 0.4 Nucleated RBC % 0 Absolute Neutrophils 10.07 H Absolute Lymphocytes 2.20 Absolute Monocytes 1.18 H Absolute Eosinophils 0.19 Absolute Basophils 0.06 Sodium 140 Potassium 4.0 D Chloride 105 Carbon Dioxide 25.6 Anion Gap 9.4 BUN 4 L Creatinine 0.8 Estimated GFR/1.73 m2 >= 60.00 Glucose 97 Calcium 8.3 L Magnesium 1.7 L Total Bilirubin 0.7 AST 73 H ALT 137 H Alkaline Phosphatase 123 H C-Reactive Protein Total Protein 6.8 Albumin 3.3 L Triglycerides 106 Total Cholesterol 175 LDL Cholesterol, Calc 107 H HDL Cholesterol 47 Lipase 528 H Urine Color Urine Clarity Urine pH Ur Specific [place] Urine Protein Urine Ketones Urine Blood Urine Nitrite Urine Bilirubin Urine Urobilinogen Ur Leukocyte Esterase Urine RBC Urine WBC Ur Epithelial Cells Urine Crystals Urine Bacteria Urine Casts Urine Mucus Urine Other Ur Culture Indicated? Urine Glucose COVID-19 Source SARS-CoV-2 (PCR) Patient ABO/Rh Antibody Screen 10/02/20 06:28 WBC RBC Hgb Hct MCV MCH MCHC RDW Plt Count MPV Immature Gran % Neutrophils % Lymphocytes % Monocytes % Eosinophils % Basophils % Nucleated RBC % Absolute Neutrophils Absolute Lymphocytes Absolute Monocytes Absolute Eosinophils Absolute Basophils Sodium Potassium Chloride Carbon Dioxide Anion Gap BUN Creatinine Estimated GFR/1.73 m2 Glucose Calcium Magnesium Total Bilirubin AST ALT Alkaline Phosphatase C-Reactive Protein 2.61 H Total Protein Albumin Triglycerides Total Cholesterol LDL Cholesterol, Calc HDL Cholesterol Lipase Urine Color Urine Clarity Urine pH Ur Specific [place] Urine Protein Urine Ketones Urine Blood Urine Nitrite Urine Bilirubin Urine Urobilinogen Ur Leukocyte Esterase Urine RBC Urine WBC Ur Epithelial Cells Urine Crystals Urine Bacteria Urine Casts Urine Mucus Urine Other Ur Culture Indicated? Urine Glucose COVID-19 Source SARS-CoV-2 (PCR) Patient ABO/Rh Antibody Screen
[2020-10-02] MEDS: Nicotine 14 MG/24 HR PATCH TD (10:08)
[2020-10-02 11:30] VITALS: BP 135/85; PULSE 86; RESP 17; TEMP 37.2; O2SAT 97
[2020-10-02] MEDS: THIAMINE 100 MG in Normal Saline 100 ML 200 MG IVPB (11:51)
[2020-10-02] MEDS: Ketorolac 30 MG/ML VIAL IVP (12:26)
[2020-10-02] MEDS: MULTIVITAMIN 10 ML, THIAMINE 100 MG, FOLIC ACID 1 MG in DEXTROSE 5%-0.45% SALINE 1,000 ML 175 ML IV (12:27)
[2020-10-02] MEDS: MAGNESIUM SULFATE 2 GM/50 ML BAG IVPB (12:28)
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
[2020-10-02 15:49] VITALS: BP 131/88; PULSE 90; RESP 17; TEMP 36.4; O2SAT 96
[2020-10-02] MEDS: Acetaminophen 325 MG TAB 650 MG PO (19:53)
[2020-10-02 19:54] VITALS: BP 146/91; PULSE 93; RESP 13; TEMP 38.8; O2SAT 98
[2020-10-02] MEDS: Folic Acid 50 MG/10 ML VIAL (23:10)
[2020-10-02] MEDS: DEXTROSE 5%-0.45% SALINE 1,000 ML 175 ML IV (23:10)
[2020-10-02] MEDS: Thiamine 200 MG/2 ML VIAL (23:11)
[2020-10-03 00:32] VITALS: BP 136/87; PULSE 84; RESP 14; TEMP 36.4; O2SAT 96
[2020-10-03] MEDS: Lactated Ringers 1,000 ML 175 ML IV (05:04)
[2020-10-03 06:05] VITALS: BP 137/88; PULSE 73; RESP 14; TEMP 36.2; O2SAT 95
[2020-10-03 07:03] LABS: Abs Immature Grans 0.06 10^3/uL (0.0-0.06); Absolute Basophil Count 0.06 10^3/uL (0.0-0.2); Absolute Eosinophil Count 0.22 10^3/uL (0.0-0.7); Absolute Lymphocyte Count 2.03 10^3/uL (1.2-3.4); Absolute Monocyte Count 1.02 10^3/uL (0.1-0.8); Basophils % 0.6; Eosinophils % 2.1; HCT 39.1 % (40.0-50.0); HGB 13.7 g/dL (13.5-17.5); Immature Grans % 0.6; MCH 33.5 pg (27.0-33.0); MCV 95.6 fL (80-95); Monocytes % 9.5; Neutrophils % 68.2; Nucleated RBC 0 %; Platelet Count 211 10^3/uL (130-400); RBC 4.09 10^6/uL (4.36-5.78); RDW-SD 41.8 fL; WBC 10.69 10^3/uL (4.4-10.8)
[2020-10-03 07:15] VITALS: BP 126/79; PULSE 81; RESP 17; TEMP 36.9; O2SAT 97
[2020-10-03 07:18] LABS: ALT 105 U/L (16-63); AST 63 U/L (15-37); Albumin 3.1 g/dL (3.4-5.0); Alkaline Phosphatase 123 U/L (46-116); Anion Gap 10.2 mmol/L (3-11); BUN 3 mg/dL (7-18); Bilirubin, Direct 0.3 mg/dL (0.0-0.2); Bilirubin, Total 0.7 mg/dL (0.2-1.0); C-Reactive Protein 9.09 mg/dL (0.0-0.3); CO2 23.8 mmol/L (21.0-32.0); CREATININE 0.7 mg/dL (0.70-1.30); Calcium 8.6 mg/dL (8.5-10.1); Chloride 105 mmol/L (98-107); Glucose 95 mg/dL (74-106); Magnesium 2.2 mg/dL (1.8-2.4); Potassium 3.8 mmol/L (3.5-5.1); Sodium 139 mmol/L (136-145); Total Protein 6.8 g/dL (6.4-8.2)
[2020-10-03] MEDS: Pantoprazole 40 MG VIAL IVP (08:16)
[2020-10-03] MEDS: Normal Saline Flush 10 ML SYR IVP (08:17)
[2020-10-03] MEDS: levoFLOXacin 750 MG/150 ML BAG 100 MG IVPB (08:17)
[2020-10-03 11:45] VITALS: BP 129/81; PULSE 82; RESP 18; TEMP 36.6; O2SAT 97
[2020-10-03] MEDS: MULTIVITAMIN 10 ML, THIAMINE 100 MG, FOLIC ACID 1 MG in DEXTROSE 5%-0.45% SALINE 1,000 ML 175 ML IV (11:46)
[2020-10-03] MEDS: Nicotine 14 MG/24 HR PATCH TD (11:46)
--- NOTE | 2020-10-03 12:39 | PHA.REVIEW ---
Pharmacy Admission Review - Admission Clinical Review (Last Reviewed 02/26/20 @ 05:50 by Matisa Walker MD) Discharge planning issues (Acute) DVT prophylaxis (Acute) Tobacco abuse (Acute) Aspiration pneumonia (Acute) Hypomagnesemia (Acute) Acute alcoholic pancreatitis (Acute) Alcohol intake above recommended sensible limits (Acute) Pulmonary infiltrates (Acute) No Known Allergies Allergy (Verified 10/01/20 18:49) Height 5 ft 7 in Weight 98.7 kg - Renal Dosing Renal Dosing: BUN 3 mg/dL (7-18) L 10/03/20 06:30 Creatinine 0.7 mg/dL (0.70-1.30) 10/03/20 06:30 Medications needing adjustments: Reviewed (Crcl ~130 mL/min current meds okay) - Anticoagulation Anticoagulation: Hgb 13.7 g/dL (13.5-17.5) 10/03/20 06:30 Hct 39.1 % (40.0-50.0) L 10/03/20 06:30 Plt Count 211 10^3/uL (130-400) 10/03/20 06:30 Creatinine 0.7 mg/dL (0.70-1.30) 10/03/20 06:30 DVT Prohphylaxis: N/A Therapeutic Anticoagulation: N/A - Opiate Usage Evaluate Pain Scale/Pains Meds: Intervened Scheduled Bowel Reg ordered if on Opiates?: No (will mention to provider) - Relevant Labs Sodium 139 mmol/L (136-145) 10/03/20 06:30 Potassium 3.8 mmol/L (3.5-5.1) 10/03/20 06:30 Chloride 105 mmol/L (98-107) 10/03/20 06:30 Magnesium 2.2 mg/dL (1.8-2.4) 10/03/20 06:30 C-Reactive Protein 9.09 mg/dL (0.0-0.3) H 10/03/20 06:30 Electrolytes, C-Reactive P, ESR: Reviewed (LFTs are improving since admission) - DM Control DM Control: Glucose 95 mg/dL (74-106) 10/03/20 06:30 Insulin Dosing: N/A - Heart Failure/MT EF%, KIRA's, B-Blockers, Diuretics: N/A - BP Control BP Control: Blood Pressure 129/81 Blood Pressure 126/79 Blood Pressure 137/88 If elevated: N/A - Qtc Review If Elevated: N/A - IV to PO Switch IV Medications: Reviewed - Home Meds Home Med List reviewed: Reviewed Relevent Home Meds Not ordered & why?: naproxen (PRN has ketorolac ordered), omeprazole (has pantoprazole ordered) - Current meds Current Medication Order Review: Reviewed - Comments Comments/Follow Ups: Watch VS, labs and for med changes (IV to PO, need of BM meds). Antibiotic Activity - Pharmacy Antibiotic Review Pharmacy Antibiotic Activity: Reviewed, no change (Levofloxacin continues (day 2))
--- NOTE | 2020-10-03 13:42 | W.PM.DS.N ---
Date of service: 10/03/20 Time of Service: 13:42 DS: Diagnosis Discharge Diagnosis (1) Acute alcoholic pancreatitis: Status: Acute (2) Aspiration pneumonia: Status: Acute (3) Alcohol intake above recommended sensible limits: Status: Acute (4) Hypomagnesemia: Status: Acute (5) Hypokalemia: Status: Resolved (6) Tobacco abuse: Status: Acute (7) COVID-19 ruled out by laboratory testing: Status: Ruled-out Discharge Plan Disposition Patient Disposition: HOME Condition: Stable Discharge Details Reason For Visit: PANCREATITIS, PNEUMONIA Admit Date/Time: 10/02/20 10:10 Admit Provider: Lloyd Solis Attending Provider: Lloyd Solis Primary Care Provider: [facility] Course Hospital Course: Mr Allen is a 25 year old male with PMHx of alcohol and tobacco abuse who was a patient on [facility] hospitalist service from 10/01/20 until 10/03/20 for acute alcoholic pancreatitis as well as aspiration pneumonia. He did not have evidence of alcohol withdrawal on this admission. He was treated with aggressive IVF and pain regimen. His diet was advanced with improvement of his symptoms. Hypertriglyceridemia and cholelithiasis/choledocholithiasis were ruled out. He is feeling much better today and is ready for discharge home. He is advised to stop drinking but to return to the hospital should he experience symptoms of alcohol withdrawal (today is day 4 since his last drink). He is also advised to stop smoking. He is able to return to work in 48 hrs or when cleared by PCP, whichever is sooner. Care for patient as well as completion of his discharge summary on day of discharge took 45 minutes. Home Meds and New Rx's Prescriptions: New nicotine 14 mg/24 hr Patch 24 Hour 14 mg transdermal DAILY PRN PRNQty: 30 RF: 0 levofloxacin 750 mg tablet 750 mg PO DAILY Qty: 3 RF: 0 oxycodone-acetaminophen [Percocet] 5-325 mg tablet 1 tab PO Q8H MDD 3 tabs or 15 mg of oxycodone PRN (Reason: pain) Qty: 10 RF: 0 Continued omeprazole 20 mg capsule,delayed release(DR/EC) 20 mg PO DAILY RF: 0 naproxen 500 mg tablet 500 mg PO BID PRN (Reason: pain) Qty: 30 RF: 0 Discharge Instructions Instructions: Oxycodone/Acetaminophen (By mouth), Levofloxacin (By mouth), Pancreatitis (DC), Low Fat Diet (DC), Bacterial Pneumonia (DC) Additional Instructions: You must stop drinking and smoking as both are huge risk factors for recurrent pancreatitis. Return to the hospital with worsening pain or signs of alcohol withdrawal. Return to the hospital with any fever, bleeding, chest pain, shortness of breath, tremors, confusion. Do not take percocet if you will operate heavy machinery or drive. Do not take percocet and drink alcohol. Follow a low fat bland diet for 1 week. Referrals: Laura Gandara NP [Primary Care Provider] - 10/07/20 2:00 pm Activity:: Activity as Tolerated Equipment/Supplies:: No Equipment Needed Diet:: low fat bland diet Discharge Orders Discharge Orders: Discharge Order (Routine); Ordered 10/03/20 Ordered By: Batsheva Kiser DS: Summary Time Spent with Patient providing and/or coordinating discharge services: Greater than 30 minutes Status at Discharge Functional status at discharge: independent ambulation Overall status at discharge: patient is back to baseline Mental Status: mental status grossly normal Speech and Movement: speech and movement normal Mood: congruent mood Affect: normal affect Exam Narrative Exam Narrative: General: Pleasant obese male, comfortable, A&Ox3 HEENT: EOMI, MMM Heart: RRR, no m/r/g Lungs: Diminished breath sounds at B bases Abdomen: soft, tender in epigastrium/periumbilically, nondistended Extremities: no edema BLE's, 2+ pedal pulses B Psych Mental Status: mental status grossly normal Speech and Movement: speech and movement normal Mood: congruent mood Affect: normal affect DS: Data Vitals/I&O Vitals and I&O: Vital Signs Temperature 36.6 C 10/03/20 11:45 Temperature Source Tympanic 10/03/20 11:45 Pulse 82 10/03/20 11:45 Pulse Rhythm Regular 10/03/20 08:15 Respiratory Rate 18 10/03/20 11:45 Respiratory Effort Non-Labored 10/03/20 08:15 Respiratory Depth Normal 10/03/20 08:15 Respiratory Pattern Normal 10/03/20 08:15 Blood Pressure 129/81 10/03/20 11:45 Blood Pressure Position Sitting 10/01/20 18:43 Pulse Oximetry 97 10/03/20 11:45 Oxygen Delivery Method Room Air 10/03/20 11:45 Oxygen Flow Rate 0 10/03/20 11:45 Pain Level 4 10/03/20 07:15 Comment 10/02/20 19:54 Intake & Output 10/02/20 10/03/20 10/03/20 23:59 11:59 23:59 Intake Total 2671.783 / 4482.200 2933.333 / 3053.333 120 / 3053.333 Balance 2671.783 / 4482.200 2933.333 / 3053.333 120 / 3053.333 Weight 98.7 kg Intake: IV 1881.783 / 3392.200 1863.333 / 1863.333 Oral 790 / 1090 1070 / 1190 120 / 1190 Other: Urine Appearance Clear Clear Urine Odor Normal Normal Comment Up to toilet independently to void, volume not assessed. voiding independently. Voiding Methods Toilet Toilet Data Completed and Pending Completed studies during hospitalization [Text1]: CT chest/abdomen/pelvis: 1. No significant trauma sequelae in the chest, abdomen, and pelvis. No fractures. 2. Hepatic steatosis. No focal hepatic lesions. 3. Mild stranding around the pancreas probably indicates an element of pancreatitis. This may be exaggerated by some motion artifact here. 4. There is no ascites. Labs on day of discharge: Labs from last 24 hours 10/03/20 10/03/20 06:30 06:30 WBC 10.69 RBC 4.09 L Hgb 13.7 Hct 39.1 L MCV 95.6 H MCH 33.5 H MCHC 35.0 RDW 12.0 Plt Count 211 MPV 10.0 Immature Gran % 0.6 Neutrophils % 68.2 Lymphocytes % 19.0 Monocytes % 9.5 Eosinophils % 2.1 Basophils % 0.6 Nucleated RBC % 0 Absolute Neutrophils 7.30 H Absolute Lymphocytes 2.03 Absolute Monocytes 1.02 H Absolute Eosinophils 0.22 Absolute Basophils 0.06 Sodium 139 Potassium 3.8 Chloride 105 Carbon Dioxide 23.8 Anion Gap 10.2 BUN 3 L Creatinine 0.7 Estimated GFR/1.73 m2 >= 60.00 Glucose 95 Calcium 8.6 Magnesium 2.2 Total Bilirubin 0.7 Conjugated Bilirubin 0.3 H AST 63 H ALT 105 H Alkaline Phosphatase 123 H C-Reactive Protein 9.09 H Total Protein 6.8 Albumin 3.1 L PFSH Medical History Alcohol intake above recommended sensible limits GERD (gastroesophageal reflux disease) Heart murmur Surgical History History of surgery on arm Social History Smoking/Tobacco Use Status: Current every day Tobacco Type: cigarettes Years smoked: 5 Smoking risk assessment performed?: Yes Alcohol Intake: current Alcohol Intake frequency: 0-2 drinks per day Alcohol type: beer Drug use: Never Substance use type: does not use Household members: significant other Do you feel safe at home: Yes Do you feel safe in your relationship?: Yes
--- NOTE | 2020-10-03 14:22 | PDOC.CMDIS ---
- If Service Date Differs Date of service: 10/03/20 Time of Service: 14:22 LACE Index Scoring Tool - Questions: Length of Stay (in days): 1 Acuity (Admit via E.D.?): Yes E.D. Visits: 3 - Answers: Total Score: 7 Risk of Readmission: Low Risk Care Management Discharge Reason for Hospitalization: Pancreatitis, Pneumonia Discharge Plan: Ha will return home with no services. His family will drive him home via private vehicle. CM connected him with the disaster recovery specialist during this admission, who will follow him out patient, as he is interested in resources to help reduce/eliminate alcohol consumption. He will follow up with his PCP and discharge plan of care. Patient/Family Education Needs: Review discharge instructions regarding activity levels and medications, discussion of self care needs including ask me three.
== END 2020-10-03 15:07 | disposition home or self-care (01) | DRG 438 ==
LOC: ER 22:06 → MS 22:09
PROVIDERS: Internal Medicine; Admitting Provider Family Medicine; Emergency Provider Physician Assistant; PCP Nurse Practitioner; Visit Provider Family Medicine
DX: K85.20 Alcohol induced acute pancreatitis without necrosis or infection (principal); J69.0 Pneumonitis due to inhalation of food and vomit; Z20.822 Contact with and (suspected) exposure to COVID-19; K21.9 Gastro-esophageal reflux disease without esophagitis; F17.210 Nicotine dependence, cigarettes, uncomplicated; F10.10 Alcohol abuse, uncomplicated; E83.42 Hypomagnesemia; E87.6 Hypokalemia; E66.9 Obesity, unspecified; Z68.34 Body mass index [BMI] 34.0-34.9, adult; K76.0 Fatty (change of) liver, not elsewhere classified
CPT/HCPCS: 36415; 74177; 80048; 80053; 80061; 80076; 83690; 86850; 86900; 86901; 87635; 96374; 99222; 99285; 71260; 81003; 81015; 83735; 85025; 86140; 99219; 99232; 99239; 99284; G0378; J1885; J1956; J2270; J3490

== ENCOUNTER 2021-03-20 17:17 | Outpatient (CLI) | payer OTHER, SELFPAY ==
--- NOTE | 2021-03-20 15:30 | DI.RAD_ITS ---
Exam(s) XR RIBS LT W PA LAT CHEST EXAM: XR RIBS LT W PA LAT CHEST CLINICAL HISTORY: fall on left metal taylor 48hours ago on left thorax R07.81 PLEURODYNIA. TECHNIQUE: 2D digital imaging was performed. COMPARISON: CR XR CHEST 2V PA LATERAL from 01/13/2020 FINDINGS: Heart size normal. Mediastinum not widened. Lungs are clear. No pneumothorax. No pleural effusion s. Dedicated left rib views reveal no obvious left rib fractures. No rib lesions. IMPRESSION: No obvious left rib fractures. Lungs are clear. DATA REPOSITORY: RADIATION DOSE DELIVERED:
== END 2021-03-20 17:37 ==
PROVIDERS: PCP Nurse Practitioner; Visit Provider Family Medicine
DX: R07.81 Pleurodynia (principal)
CPT/HCPCS: 71046; 71100

== ENCOUNTER 2024-10-24 09:47 | Emergency (ER) | payer SELFPAY ==
[2024-10-24 09:58] VITALS: BP 144/74; PULSE 64; RESP 19; TEMP 36.6; O2SAT 98
--- NOTE | 2024-10-24 10:26 | ED.GENADUL_ITS ---
Discharge Plan Disposition Patient Disposition: Home Condition: Stable Discharge Details Clinical Impression: Cat bite of left forearm, Laceration of left wrist Primary Care Provider: Huber Bain ED Provider: Doris Busby Home Meds and New Rx's Prescriptions: New amoxicillin-pot clavulanate 875-125 mg tablet 1 tab PO BID 10 Days Qty: 20 0RF No Action omeprazole 20 mg capsule,delayed release(DR/EC) 20 mg PO DAILY Discharge Instructions Instructions: Taking care of cuts, scrapes, and puncture wounds, Animal Bites ED Additional Instructions: Please take the antibiotic prescribed with yogurt or a probiotic twice daily for the next 10 days. Please take all of the 10 days. Keep the wound clean and dry. The Steri-Strips will slough off on their own in approximately 4 to 6 days. After that you may wash under running soap and water, no soaking. Allowed to air dry at least 2 hours a day. Cat bites get infected very easily. If you have increased redness, red streaks extending up your arm after 3 to 5 days of the antibiotic please return to the ER. Follow up with primary care provider in 3-5 days. Return to ED sooner if any worsening red streaks, swelling, drainage, fever or chills, body aches or concerns. Thank you for allowing us to care for you today. Stand Alone Forms: Work Release Referrals: Huber Bain, [employer] [Primary Care Provider] - 5 days Discharge Data Discharge Date/Time-TO BE ENTERED AT DEPARTURE: 10/24/24 11:54 HPI General Mode of arrival: ambulatory . Date/Time Provider Initiated Documentation: 10/24/24 10:03 . Limitations to Documentation: no limitations . Information obtained by: patient, RN notes reviewed and old records reviewed . HPI Narrative: 29-year-old male presents to the ER accompanied by his family with a chief complaint of cat bite which occurred this morning. This is very unlike the cat. The cat was reaching up to the 5-year-old daughter who is also here and began scratching and biting. The father intervened and sustained 3 approximately 3 cm lacerations to the radial aspect of his left wrist. Under multiple superficial scratches noted. Bleeding is controlled upon arrival. Up-to-date on tetanus vaccination. Range of motion intact. Distal CMS intact. Past medical history includes heart murmur acute alcoholic pancreatitis and pneumonia. Related Data Home Medications ?Medication ?Instructions ?Recorded ?Confirmed omeprazole 20 mg capsule,delayed 20 mg PO DAILY 09/13/20 10/24/24 release amoxicillin 875 mg-potassium 1 tab PO BID 10 days #20 tabs 10/24/24 clavulanate 125 mg tablet Previous Rx's ?Medication ?Instructions ?Recorded amoxicillin 875 mg-potassium 1 tab PO BID 10 days #20 tabs 10/24/24 clavulanate 125 mg tablet Allergies Allergy/AdvReac Type Severity Reaction Status Date / Time No Known Allergies Allergy Verified 10/24/24 09:57 General Stated Complaint: AnimalBite MAGNUS: 3 Review of Systems All systems reviewed & are unremarkable except as noted in HPI and below Integumentary/Breasts Skin/Breast: Reports as per HPI and Reports wounds Exam Skin Trauma: laceration left lateral wrist linear, contaminated, involves subcutaneous tissue, motor nerve function intact and sensation intact; no foreign bodies present Other: Multiple other scratches superficially and puncture wounds Full body images: 2 1. Laceration 2. Laceration 3. Laceration Course Vital Signs Vital signs: Vital Signs Temperature 36.6 C 10/24/24 09:58 Pulse 64 10/24/24 09:58 Respiratory Rate 19 10/24/24 09:58 Blood Pressure 144/74 H 10/24/24 09:58 Pulse Oximetry 98 10/24/24 09:58 Temperature 36.6 C 10/24/24 09:58 Temperature Source Oral 10/24/24 09:58 Pulse 64 10/24/24 09:58 Respiratory Rate 19 10/24/24 09:58 Blood Pressure 144/74 H 10/24/24 09:58 Blood Pressure Position Sitting 10/24/24 09:58 Pulse Oximetry 98 10/24/24 09:58 Oxygen Delivery Method Room Air 10/24/24 09:58 Oxygen Flow Rate 0 10/24/24 09:58 Pain Level 0 10/24/24 09:58 Medical Decision Making 29-year-old male presents to the ER accompanied by his family with a chief complaint of cat bite which occurred this morning. This is very unlike the cat. The cat was reaching up to the 5-year-old daughter who is also here and began scratching and biting. The father intervened and sustained 3 approximately 3 cm lacerations to the radial aspect of his left wrist. Under multiple superficial scratches noted. Bleeding is controlled upon arrival. Up-to-date on tetanus vaccination. Range of motion intact. Distal CMS intact. Past medical history includes heart murmur acute alcoholic pancreatitis and pneumonia. Will perform wound care with saline and chlorhexidine, will close the lacerations with Steri-Strips. I did discuss that normally we do not close these wounds as there is a high rate of infection. Will give 1 dose of Augmentin here in the department. Patient given prescription for 10 days of Augmentin. Discussed home care and wound care strict return instructions verbalized understanding. This text was generated using [employer] system, please disregard any oddities of phrase or misspellings. Quality:SDOH Health Related Social Needs: 2 No Data to Display PFSH All Active Problems (Updated 10/24/24 @ 11:07 by Doris Busby NP) Laceration of left wrist (Acute) Cat bite of left forearm (Acute) Trapezius muscle spasm (Acute) Alcoholic pancreatitis (Acute) 09/2020-inpatient [facility] assisted with aspiration pneumonia Rib pain on left side (Acute) Tobacco dependence (Acute) Insomnia (Acute) Neck muscle spasm (Acute) Alcohol intake above recommended sensible limits (Acute) Tobacco abuse (Acute) GERD (gastroesophageal reflux disease) (Chronic) Elevated liver enzymes (Acute) Heart murmur (Acute 03/04/12) innocent--Stills Medical History Aspiration pneumonia Acute alcoholic pancreatitis Heart murmur Surgical History History of surgery on arm Social History Smoking/Tobacco Use Status: Current every day Tobacco Type: cigarettes Years smoked: 5 Smoking risk assessment performed?: Yes Alcohol Intake: former Drug use: Never Substance use type: does not use Details: no alcohol 5 years. Household members: significant other Do you feel safe at home: Yes Do you feel safe in your relationship?: Yes
--- NOTE | 2024-10-24 10:37 | NUR.NOTE ---
Emailed animal bite form to
[2024-10-24] MEDS: Amoxicillin 875/Clav. 125 TAB PO (11:08)
--- NOTE | 2024-10-25 17:11 | NUR.NOTE ---
Nursing Note:Pt called stating that he was not sure he got a work note yesterday during his visit. I looked through the discharge and found that there was one present and he should have received it. I called the patient back and asked him to look through his paperwork and told him that there should be one in there and explained what it said. After carefully looking through his discharge, he found the work note that we provided for him.
== END 2024-10-24 11:54 | disposition home or self-care (01) ==
PROVIDERS: Emergency Provider Registered Nurse Emergency; PCP Nurse Practitioner Family
DX: S51.852A Open bite of left forearm, initial encounter (principal); S61.512A Laceration without foreign body of left wrist, initial encounter; W55.01XA Bitten by cat, initial encounter
CPT/HCPCS: 99283 ×2